=== PATIENT | male | born 1930 | race Caucasian/White ===

== ENCOUNTER 2017-11-30 03:42 | Inpatient (IN) ==
[2017-11-30] MEDS: LACTATED RINGERS 1,000 ML IV SCH ×3 (05:45→17:14)
[2017-11-30 06:10] LABS: Basophils # (Auto) 0 K/mcL (0.0-0.3); Basophils % (Auto) 0.5 % (0.0-2.0); Eosinophils # (Auto) 0.1 K/mcL (0.0-0.7); Granulocytes % (Auto) 81.5 % (38.0-78.0); Lymphocytes % (Auto) 11.5 % (15.5-49.0); Mean Cell Volume 85.3 fL (80.0-100.0); Mean Corpuscular HGB Conc 32.9 g/dL (31.0-36.0); Mean Corpuscular Hemoglobin 28.1 pg (26.0-34.0); Monocytes # (Auto) 0.5 K/mcL (0.1-0.9); Monocytes % (Auto) 5.5 % (1.0-12.0); Platelet Count 217 K/mcL (140-440); RBC 4.13 M/mcL (4.50-5.90); Red Cell Distribution Width 14.3 % (11.5-14.5)
--- NOTE | 2017-11-30 06:44 | Emergency Department Note ---
Fall HPI - General Chief Complaint: Fall Stated Complaint: fall Time Seen by Provider: 11/30/17 04:06 Source: EMS Mode of arrival: EMS - History of Present Illness HPI Narrative: This is an Alzheimer's patient who simply rolled out of bed and has fractured his right hip. Did not hit his head and has no other injuries or complaints. He does live at home and is ambulatory. - Related Data Home Medications Medication Instructions Recorded Confirmed cholecalciferol (vitamin D3) 2,000 1,000 unit PO QDAY tab 09/14/14 11/30/17 unit tablet omeprazole 20 mg tablet,delayed 20 mg PO DAILY tab 09/14/14 11/30/17 release Docusate Sodium [Stool Softener] 300 mg PO BID 04/23/16 11/30/17 Multivit-Min/Folic Acid/Vit K1 1 each PO DAILY 04/23/16 11/30/17 [Multi For Her 50 Plus Softgel] Sennosides [Senna Laxative] 25 mg PO BID 07/16/16 11/30/17 Ocuvite 1 tab PO DAILY 08/18/16 11/30/17 dextran 70-hypromellose 0.1 %-0.3 drp OPHTHALMIC 12/16/17 12/16/17 % eye drops incontinence pad, liner, disposable See Dose Instructions .ROUTE 12/16/17 .MEDSUPPLY #200 each ipratropium bromide 42 mcg (0.06 2 spray INTRANASAL TID 12/16/17 12/16/17 %) nasal spray memantine 10 mg tablet 10 mg PO BID 12/16/17 12/16/17 trazodone 100 mg tablet 100 mg PO QHS tab 12/16/17 12/16/17 Previous Rx's Medication Instructions Recorded pseudoephedrine ER 120 mg 120 mg PO BID #270 tab 02/13/17 tablet,extended release Bisacodyl [Dulcolax] 10 mg [place] Q2-3DAYS PRN supp.rect 12/03/17 Acetaminophen [Tylenol] 650 mg PO Q6HP PRN #60 tab 12/06/17 Aspirin [Lite Coat Aspirin] 325 mg PO BID #50 tab 12/06/17 Allergies Allergy/AdvReac Type Severity Reaction Status Date / Time Oxycodone Allergy Intermediate Hallucinati Verified 12/17/17 09:45 ng Review of Systems All systems ED: reviewed and negative except as stated. Fall PMH - Past Medical History [facility] Narrative: Medical History (Last Reviewed 07/10/17 @ 14:53 by Evelin Portillo RN) Urinary hesitancy (Acute) Acute retention of urine (Acute) UTI (urinary tract infection) (Acute) Urinary incontinence (Acute) Cancer of right lung (Acute) Insomnia (Acute) Hyperlipidemia (Acute) Intraepithelial neoplasm (Acute) Internal hemorrhoids (Acute) Gastrointestinal bleed (Acute) Diverticulosis of colon (Acute) Dementia (Acute) Constipation (Acute 04/20/14) Colon polyps (Acute) Cochran's esophagus (Acute) Back pain with radiation (Acute 04/20/14) Atrial fibrillation (Acute) Allergic rhinitis (Acute) Past Surgical History (Last Reviewed 07/10/17 @ 14:53 by Evelin Portilol RN) S/P TURP (Acute) History of blood transfusion (Acute) Hx of tonsillectomy (Acute) History of prostate biopsy (Acute) Status post lobectomy of lung (Acute) History of lung biopsy (Acute) H/O esophagogastroduodenoscopy (Acute) History of colonoscopy (Acute) History of adenoidectomy (Acute) Family History (Last Reviewed 07/10/17 @ 14:53 by Evelin Portillo RN) Brother Heart problem Malignant neoplasm of prostate Father Pneumonia Medical history: Reports: atrial fibrillation, cancer (Lung cancer), CVA, dementia, GERD, hyperlipidemia - Social History smoking status: Never smoker Physical Exam Limitations: no limitations General appearance: alert Head: atraumatic Eye: Present: normal appearance ENT: normal exam Neck: Present: normal inspection Chest: Present: normal inspection Respiratory: Present: normal lung sounds bilaterally Cardiovascular: Present: regular rate, normal rhythm, normal heart sounds Abdominal: Present: soft. Absent: distention, tenderness Extremities: Present: other (Tenderness to the right hip and pain with motion of the right hip joint) Neurological: Present: alert Psychiatric: Present: normal affect Skin: Present: warm, dry Course Vital Signs Temperature 97.7 F 11/30/17 03:43 Pulse Rate 69 11/30/17 03:43 Respiratory Rate 19 11/30/17 03:43 Blood Pressure 147/102 11/30/17 03:43 Pulse Oximetry (%) 94 11/30/17 03:43 Temperature 98.2 F 12/06/17 11:57 Pulse Rate 75 12/06/17 11:57 Respiratory Rate 20 12/06/17 11:57 Blood Pressure 131/77 12/06/17 11:57 Pulse Oximetry (%) 96 12/06/17 11:57 Fall - MDM Narrative Medical decision making narrative: This patient has a right hip fracture and will be admitted by Dr. Elaine for Dr. Hammond. - Lab Data Lab results reviewed: Yes I reviewed the patient's lab results. Result diagrams: 12/04/17 04:20 12/05/17 04:40 Lab Results 11/30/17 11/30/17 11/30/17 Range/Units 05:35 05:35 06:50 WBC 8.3 (4.5-11.0) K/mcL RBC 4.13 L (4.50-5.90) M/mcL Hgb 11.6 L (13.5-16.5) g/dL Hct 35.3 L (41.0-55.0) % MCV 85.3 (80.0-100.0) fL MCH 28.1 (26.0-34.0) pg MCHC 32.9 (31.0-36.0) g/dL RDW 14.3 (11.5-14.5) % Plt Count 217 (140-440) K/mcL MPV 8.2 (7.4-10.4) fL Gran % 81.5 H (38.0-78.0) % Lymph % (Auto) 11.5 L (15.5-49.0) % [place] % (Auto) 5.5 (1.0-12.0) % Eos % (Auto) 1.0 (0.0-7.0) % Baso % (Auto) 0.5 (0.0-2.0) % Gran # 6.8 (1.8-8.0) K/mcL Lymph # (Auto) 1.0 L (1.5-4.8) K/mcL [place] # (Auto) 0.5 (0.1-0.9) K/mcL Eos # (Auto) 0.1 (0.0-0.7) K/mcL Baso # (Auto) 0 (0.0-0.3) K/mcL Sodium 141 (133-145) mmol/L Potassium 4.0 (3.3-5.1) mmol/L Chloride 105 (96-108) mmol/L Carbon Dioxide 26 (22-30) mmol/L Anion Gap 10.0 (8-16) BUN 26 H (8-23) mg/dl Creatinine 1.0 (0.7-1.2) mg/dl GFR Calculation 67 Glucose 111 H (70-105) mg/dL Calcium 8.8 (8.6-10.4) mg/dl Total Bilirubin < 0.2 (0.0-1.0) mg/dL AST 21 (0-37) U/l ALT 19 (0-40) U/l Alkaline Phosphatase 109 (39-117) U/L Total Protein 6.9 (5.9-8.4) gm/dL Albumin 3.7 (3.2-5.2) gm/dL Globulin 3.2 (2.2-3.7) gm/dL Albumin/Globulin Ratio 1.2 (1.0-2.3) Urine Color Yellow Urine Appearance Clear Urine pH 6.0 (5.0-9.0) Ur Specific [place] 1.018 (1.000-1.035) Urine Protein Neg (NEG) mg/dL Urine Glucose (UA) Negative (NEG) mg/dL Urine Ketones Neg (NEG) mg/dL Urine Occult Blood >=1.0 A (<0.03) mg/dL Urine Nitrate Neg (NEG) Urine Bilirubin Neg (NEG) mg/dL Urine Urobilinogen Neg (NEG) mg/dL Ur Leukocyte Esterase Neg (NEG) /uL Urine RBC > 182 H (0-1) /hpf Urine WBC 4 (0-4) /hpf Ur Squamous Epith Cells < 1 (0-4) /hpf Urine Bacteria 0 (0) /hpf Hyaline Casts 1 (0-2) /lpf Urine Mucus Few (0) /hpf Ur Culture Indicated? No - Radiology Data Radiology results reviewed: Yes I reviewed the patient's radiology results. Disposition Pt seen by DIRECTOR OF CASINO/PA only: No Clinical Impression: Hip fracture, right Disposition: Xfer Inpatient Rehab Fac Condition: Serious
[2017-11-30 06:46] LABS: ALT/SGPT 19 U/l (0-40); Albumin 3.7 gm/dL (3.2-5.2); Albumin/Globulin Ratio 1.2 (1.0-2.3); Alkaline Phosphatase 109 U/L (39-117); Blood Urea Nitrogen 26 mg/dl (8-23)
[2017-11-30 06:49] LABS: Appearance,Urine CLEAR; Bacteria,Urine 0 /hpf (0); Bilirubin,Urine NEG (NEG); Color,Urine YELLOW; Glucose,Urine (UA) NEGATIVE (NEG); Leukocyte Esterase,Urine NEG /uL (NEG); Mucus,Urine FEW /hpf (0); Protein,Urine NEG (NEG); Specific Gravity,Urine 1.018 (1.000-1.035); Urine Blood >=1.0 mg/dL (<0.03); Urine Hyaline Cast 1 /lpf (0-2); Urine RBC > 182 /hpf (0-1); Urine Squamous Epithelial Cell < 1 /hpf (0-4); Urine WBC 4 /hpf (0-4); Urobilinogen,Urine NEG (NEG)
--- NOTE | 2017-11-30 07:15 | Cat Scan Report ---
CLINICAL INFORMATION: Right hip fracture TECHNIQUE: Thin section axial images of the right hip. Sagittally and coronally reformatted images. COMPARISON: Plain film examination dated 11/30/2017 FINDINGS: Right femoral neck fracture are again identified. This is obliquely oriented. This extends from the subcapital femoral neck superiorly to the mid to distal femoral neck colloid. There is impaction and varus angulation deformity. There is displacement. Right hemipelvis is otherwise negative. Pubic symphysis is negative. No intrapelvic hematoma. No free fluid. Examination was initially reviewed by [facility] IMPRESSION: 1. Right femoral neck fracture with impaction and varus angulation. 2. Fracture is subcapital and transcervical with displacement Interpreted and Authenticated by: Darrion Colvin 11/30/17
--- NOTE | 2017-11-30 07:17 | XRay Report ---
INDICATION: Fall. Hip fracture. TECHNIQUE: AP chest x-ray, portable semiupright COMPARISON: 05/29/2017 FINDINGS: Poor quality examination due to difficulty positioning the patient. Inspiration is suboptimal. Findings are suspicious for bilateral infiltrates. There may be right pleural fluid. Upright PA and lateral chest x-ray recommended when clinically appropriate IMPRESSION: 1. Poor quality examination. Bilateral infiltrates are possible. 2. Recommend upright film with better inspiration when clinically appropriate Interpreted and Authenticated by: Darrion Colvin 11/30/17
--- NOTE | 2017-11-30 07:18 | XRay Report ---
CLINICAL INFORMATION: Right hip injury TECHNIQUE: AP pelvis. Lateral right hip COMPARISON: None. FINDINGS: Subcapital or transcervical right hip fracture. There is varus angulation deformity. Pelvis is negative. No fracture. No lytic lesion. Sacrum is suboptimally visualized but no definite abnormality. IMPRESSION: Right hip fracture Interpreted and Authenticated by: Darrion Colvin 11/30/17
--- NOTE | 2017-11-30 08:27 | Internal Med History&Physical ---
Medical - H&P: [facility] Patient information: Note initiated : 11/30/17 at 8:22 am Service Date, if different from initiated Date: [] Patient: Vidal Guajardo a 87 y/o M admitted on for fall. Chief Complaint: fall, right hip pain History of present illness: Mr. Guajardo is a 87 year old M a history of dementia, urinary frequency and retention, Cochran's esophagus, hypercholesterolemia which is not currently treated presents the ED after fall out of bed. History is obtained speaking to the patient's , some history obtained from the patient, as well as reviewing the available medical record. Patient is restless at night, he rolled out of bed this morning early, landed on his right side. His was unable to get him up. EMS was called, and he was transferred to the ED. Imaging reveals a right subcapital hip fracture. Currently the patient's complaining of some right hand pain, no hip pain while he is at rest. He denies any shortness of breath. His provides further review of systems, he normally does not have lower extremity edema, normally does not get dyspneic with exertion. He has no known history of coronary disease. She denies there is a history of atrial fibrillation, she was surprised to hear that that was noted in his chart (he is sinus rhythm currently ). 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 He does have a chronic cough which is nonproductive and has been ongoing for several years, and preceded his lobectomy. He generally ambulates without any symptoms. Patient is being admitted for surgical repair of his right subcapital hip fracture. Patient denies any fever, any headache, vision change, sore throat, shortness of breath, chest pain/tightness/pressure, nausea, vomiting, abdominal pain, limb pain. ROS unobtainable: due to mental status (Other than noted in the history of present illness, further review of systems cannot be reliably contained due to the patient's dementia) Medical - H&P: PMH Medical history: Hyperlipidemia (Acute) Dementia (Acute) Insomnia (Acute) Internal hemorrhoids (Acute) Gastrointestinal bleed (Acute) Diverticulosis of colon (Acute) Constipation (Acute 04/20/14) Colon polyps (Acute) Cochran's esophagus (Acute) Back pain with radiation (Acute 04/20/14) Urinary hesitancy (Acute) Acute retention of urine (Acute) UTI (urinary tract infection) (Acute) Urinary incontinence (Acute) Intraepithelial neoplasm (Acute) Cancer of right lung (Acute), s/p lobectomy Atrial fibrillation (Acute)- is unaware of this diagnosis and NSR 11/30/17 Allergic rhinitis (Acute) Surgical history: Status post lobectomy of lung (Acute)-RML History of lung biopsy (Acute) S/P TURP (Acute) History of prostate biopsy (Acute) History of blood transfusion (Acute) Hx of tonsillectomy (Acute) History of adenoidectomy (Acute) H/O esophagogastroduodenoscopy (Acute) History of colonoscopy (Acute) Pertinent family history: Brother Heart problem Malignant neoplasm of prostate Father Pneumonia Social history: The patient lives with his . He has never smoked. He has not drink alcohol. He had been independent in ADLs until the current hospitalization. Medical - H&P: Meds Home Medications Medication Instructions Recorded Confirmed Type cholecalciferol (vitamin D3) 2,000 1,000 unit PO QDAY tab 09/14/14 11/30/17 History unit tablet omeprazole 20 mg tablet,delayed 20 mg PO DAILY tab 09/14/14 11/30/17 History release Docusate Sodium [Stool Softener] 300 mg PO BID 04/23/16 11/30/17 History Multivit-Min/Folic Acid/Vit K1 1 each PO DAILY 04/23/16 11/30/17 History [Multi For Her 50 Plus Softgel] Sennosides [Senna Laxative] 25 mg PO BID 07/16/16 11/30/17 History Ocuvite 1 tab PO DAILY 08/18/16 11/30/17 History pseudoephedrine ER 120 mg 120 mg PO BID #270 tab 02/13/17 11/30/17 Rx tablet,extended release Allergies Allergy/AdvReac Type Severity Reaction Status Date / Time No Known Drug Allergies Allergy Verified 11/13/17 14:24 Medical - H&P: Exam - Constitutional Vitals: Temp Pulse Resp BP Pulse Ox 97.7 F 70 19 147/76 95 11/30/17 03:43 11/30/17 06:31 11/30/17 03:43 11/30/17 06:31 11/30/17 06:31 Exam: GENERAL: Alert, oriented to self, in no acute distress. Cooperative, appears stated age. HEENT: Atraumatic. PERRL, conjunctiva clear, no scleral icterus. Hearing grossly intact (hearing aids in place). Oropharynx with moist mucous membranes , no lip or gum lesions, no pharyngeal erythema or exudate. Tongue midline, palate rises symmetrically. NECK: Supple without meningismus, no thyromegaly RESPIRATORY: Breath sounds with coarse rales in the bases bilaterally, otherwise clear without wheezes or rhonchi. Respiratory effort is unlabored. CARDIOVASCULAR: Regular rate and rhythm, no murmur gallop or rub appreciated. No peripheral edema. JVP is below the level of the clavicle while at 30. Carotid pulses 2+ without bruit. Dorsalis pedis and posterior tibial pulses 2+. GI: Abdomen soft, nontender, no guarding or rebound. Bowel sounds are present. No hepatosplenomegaly. LYMPHATIC: No cervical or supraclavicular lymphadenopathy MUSCULOSKELETAL: Mild tenderness with palpation over the lateral right hip. Right lower extremity is aligned normally, normal pulses and intact sensation. Right hand is without deformity, erythema or edema. There is no tenderness. Otherwise there is no joint erythema or swelling, normal range of motion in remaining extremities. SKIN: Intact, warm, dry. No lesions. Skin turgor decreased. Multiple superficial varicosities on the lower extremities. NEUROLOGIC: Cranial nerves II through XII grossly intact. Muscle mass normal for age. Strength 5/5 in the upper lower extremities, testing limited by hip fracture in the lower extremities. Sensation intact to light touch bilaterally. PSYCHIATRIC: Alert, oriented to person only decreased insight into his medical condition, poor short and long-term memory. Speech is rambling at times. Medical - H&P: Reslt - Labs CBC & Chem 7: 11/30/17 05:35 11/30/17 05:35 Labs: Short CBC 11/30/17 11/30/17 11/30/17 Range/Units 05:35 05:35 06:50 WBC 8.3 (4.5-11.0) K/mcL RBC 4.13 L (4.50-5.90) M/mcL Hgb 11.6 L (13.5-16.5) g/dL Hct 35.3 L (41.0-55.0) % MCV 85.3 (80.0-100.0) fL MCH 28.1 (26.0-34.0) pg MCHC 32.9 (31.0-36.0) g/dL RDW 14.3 (11.5-14.5) % Plt Count 217 (140-440) K/mcL MPV 8.2 (7.4-10.4) fL Gran % 81.5 H (38.0-78.0) % Lymph % (Auto) 11.5 L (15.5-49.0) % [place] % (Auto) 5.5 (1.0-12.0) % Eos % (Auto) 1.0 (0.0-7.0) % Baso % (Auto) 0.5 (0.0-2.0) % Gran # 6.8 (1.8-8.0) K/mcL Lymph # (Auto) 1.0 L (1.5-4.8) K/mcL [place] # (Auto) 0.5 (0.1-0.9) K/mcL Eos # (Auto) 0.1 (0.0-0.7) K/mcL Baso # (Auto) 0 (0.0-0.3) K/mcL Sodium 141 (133-145) mmol/L Potassium 4.0 (3.3-5.1) mmol/L Chloride 105 (96-108) mmol/L Carbon Dioxide 26 (22-30) mmol/L Anion Gap 10.0 (8-16) BUN 26 H (8-23) mg/dl Creatinine 1.0 (0.7-1.2) mg/dl GFR Calculation 67 Glucose 111 H (70-105) mg/dL Calcium 8.8 (8.6-10.4) mg/dl Total Bilirubin < 0.2 (0.0-1.0) mg/dL AST 21 (0-37) U/l ALT 19 (0-40) U/l Alkaline Phosphatase 109 (39-117) U/L Total Protein 6.9 (5.9-8.4) gm/dL Albumin 3.7 (3.2-5.2) gm/dL Globulin 3.2 (2.2-3.7) gm/dL Albumin/Globulin Ratio 1.2 (1.0-2.3) Urine Color Yellow Urine Appearance Clear Urine pH 6.0 (5.0-9.0) Ur Specific [place] 1.018 (1.000-1.035) Urine Protein Neg (NEG) mg/dL Urine Glucose (UA) Negative (NEG) mg/dL Urine Ketones Neg (NEG) mg/dL Urine Occult Blood >=1.0 A (<0.03) mg/dL Urine Nitrate Neg (NEG) Urine Bilirubin Neg (NEG) mg/dL Urine Urobilinogen Neg (NEG) mg/dL Ur Leukocyte Esterase Neg (NEG) /uL Urine RBC > 182 H (0-1) /hpf Urine WBC 4 (0-4) /hpf Ur Squamous Epith Cells < 1 (0-4) /hpf Urine Bacteria 0 (0) /hpf Hyaline Casts 1 (0-2) /lpf Urine Mucus Few (0) /hpf Ur Culture Indicated? No BMP 11/30/17 05:35 Sodium 141 Potassium 4.0 Chloride 105 Carbon Dioxide 26 BUN 26 H Creatinine 1.0 Glucose 111 H Calcium 8.8 Liver Function 11/30/17 Range/Units 05:35 Total Bilirubin < 0.2 (0.0-1.0) mg/dL AST 21 (0-37) U/l ALT 19 (0-40) U/l Alkaline Phosphatase 109 (39-117) U/L Albumin 3.7 (3.2-5.2) gm/dL Urine 11/30/17 Range/Units 06:50 Urine Color Yellow Urine Appearance Clear Urine pH 6.0 (5.0-9.0) Ur Specific [place] 1.018 (1.000-1.035) Urine Protein Neg (NEG) mg/dL Urine Glucose (UA) Negative (NEG) mg/dL - EKG Data -: EKG Reviewed by Myself (Sinus at 71, no acute ST changes) - Impressions Hip X-ray FINDINGS: Subcapital or transcervical right hip fracture. There is varus angulation deformity. Pelvis is negative. No fracture. No lytic lesion. Sacrum is suboptimally visualized but no definite abnormality. IMPRESSION: Right hip fracture CT of Hip, images reviewed IMPRESSION: 1. Right femoral neck fracture with impaction and varus angulation. 2. Fracture is subcapital and transcervical with displacement - Imaging and Cardiology Chest x-ray Status: image reviewed by me Additional comments: FINDINGS: Poor quality examination due to difficulty positioning the patient. Inspiration is suboptimal. Findings are suspicious for bilateral infiltrates. There may be right pleural fluid. Upright PA and lateral chest x-ray recommended when clinically appropriate IMPRESSION: 1. Poor quality examination. Bilateral infiltrates are possible. 2. Recommend upright film with better inspiration when clinically appropriate Medical - H&P: A/P (1) Closed right hip fracture Current visit: Yes Status: Acute (2) Dementia Current visit: Yes Status: Chronic (3) Normocytic anemia Current visit: Yes Status: Chronic - Narrative A/P Narrative: 87-year-old male with history of fairly significant dementia presents after a fall out of bed with right hip fracture. Right hip fracture. Patient will require operative repair. In regards to operative risk, the patient is no history of coronary disease. He does have a history of right lobectomy and does have some coarse rales at the bases more consistent with perhaps fibrosis. He has no evidence otherwise of decompensated heart failure and no history of CHF. He is oxygenating well on room air. His chest radiograph is of poor quality with poor inspiration, suggesting possible basilar infiltrates, however he has no symptoms to suggest pneumonia, and has a normal white count. He is at risk for delirium postoperatively, that will have to be managed as needed. Discussed with Dr. Hammond. Plan: Inpatient admission Dr. Hammond to take to the OR this morning Nothing by mouth SCDs currently, Lovenox when safe postoperatively Dementia. Advanced. Discussed with his that he may have significant worsening of his cognitive function because of the injury as well as necessity for anesthesia and pain medications. She realizes this is a likely possibility. He is at risk for delirium. He has been tried on Aricept and Namenda in the past without significant improvement. Plan: Supportive care, frequent reorientation, minimizing distractions, etc. Normocytic anemia. Mild. Appears to be long-standing. He does have history of GI bleed listed, but no current evidence of GI blood loss according to his . May be related to chronic disease. Do not see a contraindication for anticoagulation for DVT prophylaxis. We'll need to follow postoperatively for any acute blood loss anemia on top of his current normocytic anemia. Plan: Monitor. CODE STATUS: DO NOT RESUSCITATE DVT prophylaxis: SCDs preoperatively
[2017-11-30] MEDS ORDERED: VIT A,C & E/LUTEIN/MINERALS TABLET PO SCH (09:00)
[2017-11-30] MEDS ORDERED: DOCUSATE SODIUM 100 MG CAPSULE PO SCH (09:00)
[2017-11-30] MEDS ORDERED: ceFAZolin 1 GM VIAL IV SCH (09:30)
[2017-11-30] MEDS ORDERED: ceFAZolin 1 GM VIAL ONE (09:35)
[2017-11-30] MEDS ORDERED: KETAMINE 100 MG/ML ML IV ONE (09:40)
[2017-11-30] MEDS ORDERED: LIDOCAINE HCL/PF 100 MG/5 ML SYRINGE IV ONE (09:40)
[2017-11-30] MEDS ORDERED: HYDROmorphone 2 MG/ML VIAL IV ONE (09:40)
[2017-11-30] MEDS ORDERED: fentaNYL 250 MCG/5 ML VIAL IV ONE (09:40)
[2017-11-30] MEDS ORDERED: DEXAMETHASONE 10 MG/ML VIAL IV ONE (09:40)
[2017-11-30] MEDS ORDERED: ONDANSETRON 4 MG/2 ML VIAL IV ONE (09:40)
[2017-11-30] MEDS ORDERED: PROPOFOL 200 MG/20 ML VIAL IV ONE (09:40)
[2017-11-30] MEDS ORDERED: TRANEXAMIC ACID 1,000 MG/10 ML VIAL IV ONE (09:40)
[2017-11-30] MEDS ORDERED: MIDAZOLAM 2 MG/2 ML VIAL IV ONE (09:40)
[2017-11-30] MEDS ORDERED: FLUMAZENIL 0.1 MG/ML ML IV PRN (10:19)
[2017-11-30] MEDS ORDERED: ACETAMINOPHEN 1,000 MG/100 ML BOTTLE IV ONE (10:19)
[2017-11-30] MEDS ORDERED: LACTATED RINGERS 250 ML IV PRN (10:19)
[2017-11-30] MEDS ORDERED: NALOXONE HCL 0.4 MG/ML VIAL IV PRN (10:19)
[2017-11-30] MEDS ORDERED: BENZOCAINE/MENTHOL 1 LOZENGE PO PRN (10:19)
[2017-11-30] MEDS ORDERED: IPRATROPIUM/ALBUTEROL 3 ML AMPUL.NEB NEB PRN (10:19)
[2017-11-30] MEDS ORDERED: METHOCARBAMOL 1,000 MG/10 ML VIAL IV PRN (10:19)
[2017-11-30] MEDS ORDERED: fentaNYL 100 MCG/2 ML VIAL IV PRN (10:19)
[2017-11-30] MEDS ORDERED: GENTAMICIN SULFATE 800 MG/20 ML VIAL IR ONE (10:24)
[2017-11-30] MEDS ORDERED: LACTATED RINGERS 1,000 ML IV SCH ×2 (10:30→11:04)
[2017-11-30] MEDS ORDERED: ACETAMINOPHEN 325 MG TABLET PO PRN (11:04)
[2017-11-30] MEDS ORDERED: ONDANSETRON 4 MG/2 ML VIAL IV PRN (11:04)
[2017-11-30] MEDS ORDERED: BISACODYL 10 MG SUPP.RECT PR PRN (11:04)
[2017-11-30] MEDS ORDERED: MAGNESIUM HYDROXIDE 30 ML ORAL.SUSP PO PRN (11:04)
--- NOTE | 2017-11-30 11:52 | History and Physical Report ---
DATE OF ADMISSION: 11/30/2017 IDENTIFICATION: This is an 87-year-old male. CHIEF COMPLAINT: Right hip fracture. HISTORY: The patient resides at home with his . He rolled out of bed this morning. He had immediate pain, right hip. This was a non-syncopal fall. He did not strike his head, and he really has no other injuries, but complains of hip pain, presents to the emergency room, and radiographs have demonstrated a right hip fracture. PAST MEDICAL HISTORY: Significant for fairly involved Alzheimer disease. He has had a previous chest surgery for lung cancer, but is really quite healthy otherwise. He does have a history of atrial fibrillation, but is not presently in atrial fibrillation. He has had some urologic issues and is status post a TURP. PAST SURGICAL HISTORY: He has had a previous lobectomy of his lung. He has had a tonsillectomy. He has had a TURP. MEDICATIONS: Include omeprazole, vitamin D, vitamins, Ocuvite. ALLERGIES: None. REVIEW OF SYSTEMS: He has generally been quite healthy and the balance of 10-point review of systems is negative except for some urinary issues. PHYSICAL EXAMINATION: GENERAL: He is awake and alert, but is clearly confused. Vital Signs: Quite normal. HEAD: Normocephalic, atraumatic. EYES: PERRLA. Conjunctivae clear. ENT: Within normal limits. Dentition poor. NECK: Supple without pain on range of motion. HEART: Regular. LUNGS: Clear. ABDOMEN: Benign. LOWER EXTREMITIES: His right lower extremity is shortened with somewhat of a deformity, his left lower extremity is normal and is neurovascularly intact. Right lower extremity appears to be without neurovascular deficit, but again is shortened and any motion whatsoever produces an acute spasm and pain. RADIOGRAPHS: Demonstrate a femoral neck fracture. IMPRESSION: Femoral neck fracture subcapital/transcervical. PLAN: We have reviewed treatment options. We will plan to proceed with a hemiarthroplasty of this right hip. GDD:sobia Job ID: [id number] Doc ID: [id number] Duong Hammond MD
--- NOTE | 2017-11-30 12:12 | XRay Report ---
CLINICAL INFORMATION: Right hip replacement TECHNIQUE: AP and crosstable lateral right hip COMPARISON: Preoperative evaluation dated 11/30/2017 FINDINGS: Status post right hip arthroplasty. There is postoperative soft tissue gas and there are skin ej anteriorly. Anatomic position demonstrated. IMPRESSION: Status post right hip arthroplasty Interpreted and Authenticated by: Darrion Colvin 11/30/17
[2017-11-30] MEDS ORDERED: OLANZapine 10 MG VIAL IM SCH (16:45)
[2017-11-30] MEDS: OLANZapine 10 MG VIAL IM ONE ×2 (16:56→16:57)
[2017-11-30] MEDS: 0.9 % SODIUM CHLORIDE 10 ML SYRINGE IV SCH ×2 (16:58→20:59)
[2017-11-30] MEDS: FAMOTIDINE/PF 20 MG/2 ML VIAL IV SCH ×2 (17:14→20:55)
[2017-11-30] MEDS: ceFAZolin 1 GM VIAL IV SCH (19:26)
[2017-11-30] MEDS ORDERED: OLANZapine 10 MG VIAL IM PRN (19:38)
[2017-11-30] MEDS ORDERED: LORazepam 2 MG/ML VIAL ONE (20:29)
[2017-11-30] MEDS: LORazepam 2 MG/ML VIAL IV PRN (20:30)
[2017-11-30] MEDS: DOCUSATE SODIUM 100 MG CAPSULE PO SCH (20:59)
[2017-11-30] MEDS: ASPIRIN 325 MG ENTERIC COATED TABLET PO SCH (20:59)
[2017-11-30] MEDS: SENNOSIDES 1 TABLET PO SCH (20:59)
[2017-12-01] MEDS: LORazepam 2 MG/ML VIAL IV PRN ×5 (01:32→23:16)
[2017-12-01] MEDS: ceFAZolin 1 GM VIAL IV SCH (04:12)
[2017-12-01] MEDS: 0.9 % SODIUM CHLORIDE 10 ML SYRINGE IV SCH ×3 (06:28→20:30)
[2017-12-01] MEDS: LACTATED RINGERS 1,000 ML IV SCH ×3 (06:28→22:46)
[2017-12-01 07:50] LABS: Basophils # (Auto) 0 K/mcL (0.0-0.3); Basophils % (Auto) 0.1 % (0.0-2.0); Eosinophils # (Auto) 0 K/mcL (0.0-0.7); Eosinophils % (Auto) 0.4 % (0.0-7.0); Granulocytes % (Auto) 86.4 % (38.0-78.0); Lymphocytes # (Auto) 0.9 K/mcL (1.5-4.8); Lymphocytes % (Auto) 6.6 % (15.5-49.0); Mean Cell Volume 85.7 fL (80.0-100.0); Mean Corpuscular HGB Conc 32.5 g/dL (31.0-36.0); Mean Corpuscular Hemoglobin 27.8 pg (26.0-34.0); Monocytes # (Auto) 0.9 K/mcL (0.1-0.9); Monocytes % (Auto) 6.5 % (1.0-12.0); Platelet Count 178 K/mcL (140-440); RBC 4.04 M/mcL (4.50-5.90); Red Cell Distribution Width 14.4 % (11.5-14.5)
[2017-12-01 08:07] LABS: Blood Urea Nitrogen 19 mg/dl (8-23)
--- NOTE | 2017-12-01 08:07 | Orthopedic Progress Note ---
Subjective Patient information: Note initiated : 12/01/17 at 8:05 am Service Date, if different from initiated Date: [] Patient: Vidal Guajardo 87 y/o M admitted on 11/30/17 for Fall/Right Hip Fracture. Chief Complaint: [S/P right hip hemiarthroplasty] HPI is limited due to sedation. No particular complaints. Objective Vital signs: Vital Signs Temp Pulse Pulse Pulse Resp BP BP 12/01/17 03:30 98.0 F 89 20 118/67 12/01/17 01:30 11/30/17 23:45 97.8 F 78 20 115/69 11/30/17 21:45 11/30/17 21:32 11/30/17 20:45 11/30/17 20:40 11/30/17 19:35 99.7 F H 88 16 103/61 11/30/17 17:09 127/72 11/30/17 16:00 98.1 F 18 110/60 11/30/17 15:10 98.2 F 16 117/66 11/30/17 14:20 103/71 11/30/17 13:50 92/60 11/30/17 13:45 11/30/17 13:20 125/72 11/30/17 12:50 120/75 11/30/17 12:35 11/30/17 12:20 112/67 11/30/17 12:02 97.4 F 86 14 120/64 11/30/17 11:48 97.8 F 90 13 126/66 11/30/17 11:33 97.8 F 87 12 124/68 11/30/17 11:28 97.8 F 88 13 117/60 11/30/17 11:23 97.8 F 89 14 115/65 11/30/17 11:18 97.8 F 88 14 116/63 11/30/17 11:13 97.8 F 89 12 119/60 11/30/17 11:08 97.7 F 89 14 113/65 11/30/17 11:03 97.7 F 86 13 112/60 11/30/17 09:07 97.7 F 70 19 147/76 Pulse Ox 12/01/17 03:30 94 12/01/17 01:30 93 11/30/17 23:45 95 11/30/17 21:45 94 11/30/17 21:32 95 11/30/17 20:45 94 11/30/17 20:40 84 L 11/30/17 19:35 93 11/30/17 17:09 11/30/17 16:00 99 11/30/17 15:10 98 11/30/17 14:20 11/30/17 13:50 11/30/17 13:45 97 11/30/17 13:20 11/30/17 12:50 96 11/30/17 12:35 96 11/30/17 12:20 98 11/30/17 12:02 98 11/30/17 11:48 98 11/30/17 11:33 99 11/30/17 11:28 100 11/30/17 11:23 100 11/30/17 11:18 100 11/30/17 11:13 100 11/30/17 11:08 99 11/30/17 11:03 100 11/30/17 09:07 95 Intake and Output 11/30/17 12/01/17 12/01/17 21:59 05:59 13:59 Intake Total 0 / 0 1000 / 1000 Output Total 725 / 725 Balance 0 / 0 275 / 275 Intake: IV 1000 / 1000 Lactated Ringers 1,000 ml @ 100 1000 / 1000 mls/hr IV .Q10H [facility] Rx#: [id number] Oral 0 / 0 0 / 0 Output: Urine Catheter Amount 725 / 725 Other: Urine Appearance Clear Clear Straight Clear Urine Color Light Gris Straw Straight Light Gris Urine Odor Normal Weight 164 lb Intake & Output: Intake & Output 11/30/17 12/01/17 12/01/17 21:59 05:59 13:59 Intake Total 0 / 0 1000 / 1000 Output Total 725 / 725 Balance 0 / 0 275 / 275 Weight 164 lb Intake: IV 1000 / 1000 Lactated Ringers 1,000 ml @ 100 1000 / 1000 mls/hr IV .Q10H [facility] Rx#: [id number] Oral 0 / 0 0 / 0 Output: Urine Catheter Amount 725 / 725 Other: Urine Appearance Clear Clear Straight Clear Urine Color Light Gris Straw Straight Light Gris Urine Odor Normal Incision: Yes healing, Yes clean and dry Incision clean and dry: Yes Dressing: Yes clean, Yes dry, Yes intact Weight bearing status: full Neurological exam IM: Yes alert, Yes oriented X3, Yes motor sensory intact, Yes neurovascular intact Extremities exam IM: Yes calf tenderness (negative), Yes Denny's sign (negative) , Yes Foot pink and warm, Yes neurovascular intact - Labs CBC & BMP: 12/01/17 06:15 11/30/17 05:35 Labs: 12/01/17 11/30/17 06:15 05:35 Hgb 11.2 L 11.6 L Hct 34.6 L 35.3 L Assessment and Plan (1) Hip fracture, right Ambulate with PT today. Likely discharge to SNF in 2 days. Consult with social sciences department chair regarding discharge placement.. Status: Acute
[2017-12-01] MEDS: FAMOTIDINE/PF 20 MG/2 ML VIAL IV SCH ×2 (08:33→20:29)
--- NOTE | 2017-12-01 09:42 | Internal Med Progress Note ---
Medical - PN: Subj Patient information: Note initiated : 12/01/17 at 9:40 am Service Date, if different from initiated Date: [] Patient: Vidal Guajardo a 87 y/o M admitted on 11/30/17 for Fall/Right Hip Fracture. Chief Complaint: f/u hip fracture Interval history: 11/30 Mr. Guajardo is a 87 year old M a history of dementia, urinary frequency and retention, Cochran's esophagus, hypercholesterolemia which is not currently treated presents the ED after fall out of bed. History is obtained speaking to the patient's , some history obtained from the patient, as well as reviewing the available medical record. Patient is restless at night, he rolled out of bed this morning early, landed on his right side. His was unable to get him up. EMS was called, and he was transferred to the ED. Imaging reveals a right subcapital hip fracture. Currently the patient's complaining of some right hand pain, no hip pain while he is at rest. He denies any shortness of breath. His provides further review of systems, he normally does not have lower extremity edema, normally does not get dyspneic with exertion. He has no known history of coronary disease. She denies there is a history of atrial fibrillation, she was surprised to hear that that was noted in his chart (he is sinus rhythm currently ). 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 He does have a chronic cough which is nonproductive and has been ongoing for several years, and preceded his lobectomy. He generally ambulates without any symptoms. Patient is being admitted for surgical repair of his right subcapital hip fracture. 12/01 Had successful right hemiarthroplasty yesterday Became quite restless and agitated towards the evening, consistent with ing. Zyprexa 10 mg IM given, subsequently required lorazepam. Was more agitated this morning, required further lorazepam, now sleeping. 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 Developing hypoxia. Intermittently requiring oxy mask. - Constitutional Vitals: Vital Signs Temp Pulse Resp BP Pulse Ox 98.5 F 84 24 H 134/79 98 12/01/17 08:38 12/01/17 08:38 12/01/17 08:38 12/01/17 08:38 12/01/17 08:38 Period Temp Pulse Resp BP Sys/Canchola Pulse Ox Last 24 Hr 97.4 F-99.7 F 78-90 12-24 92-134/60-79 84-100 Intake and Output 11/30/17 12/01/17 12/01/17 21:59 05:59 13:59 Intake Total 0 / 0 1000 / 1000 Output Total 725 / 725 Balance 0 / 0 275 / 275 Weight 164 lb Intake & Output: Intake & Output 11/30/17 12/01/17 12/01/17 21:59 05:59 13:59 Intake Total 0 / 0 1000 / 1000 Output Total 725 / 725 Balance 0 / 0 275 / 275 Weight 164 lb Intake: IV 1000 / 1000 Lactated Ringers 1,000 ml @ 100 1000 / 1000 mls/hr IV .Q10H [facility] Rx#: [id number] Oral 0 / 0 0 / 0 Output: Urine Catheter Amount 725 / 725 Other: Urine Appearance Clear Clear Straight Clear Urine Color Light Gris Straw Straight Light Gris Urine Odor Normal Exam: General: Sleeping, does not arouse much Chest: Right rales at the bases, no rales left base. Respirations are unlabored , respiratory rate is normal Cardiovascular: Regular, no edema Musculoskeletal: Right hip dressings are clean and intact, good capillary refill Neuro: Sleeping, does not arouse much, is confused when awake. Medical - PN: Obj Da - Labs CBC & Chem 7: 12/01/17 06:15 12/01/17 06:50 Labs: Abnormal Lab Results 12/01/17 12/01/17 11/30/17 06:50 06:15 06:50 WBC 13.6 H RBC 4.04 L Hgb 11.2 L Hct 34.6 L Gran % 86.4 H Lymph % (Auto) 6.6 L Gran # 11.7 H Lymph # (Auto) 0.9 L BUN Glucose 113 H Calcium 8.1 L Urine Occult Blood >=1.0 A Urine RBC > 182 H 11/30/17 11/30/17 05:35 05:35 WBC RBC 4.13 L Hgb 11.6 L Hct 35.3 L Gran % 81.5 H Lymph % (Auto) 11.5 L Gran # Lymph # (Auto) 1.0 L BUN 26 H Glucose 111 H Calcium Urine Occult Blood Urine RBC Meds: Medications Acetaminophen (Tylenol) 650 mg PO Q6HP PRN PRN Reason: PAIN/FEVER > 101 Aspirin (Ecotrin) 325 mg PO BID [facility] Last Admin: 11/30/17 20:59 Dose: Not Given Bisacodyl (Dulcolax) 10 mg [place] Q2-3DAYS PRN PRN Reason: Constipation Docusate Sodium (Colace) 300 mg PO BID [facility] Last Admin: 11/30/17 20:59 Dose: Not Given Enoxaparin Sodium (Lovenox) 40 mg SQ DAILY [facility] Famotidine (Pepcid) 20 mg IV Q12 [facility] Last Admin: 12/01/17 08:33 Dose: 20 mg Lactated Ringer's (Lactated Ringers) 1,000 mls @ 100 mls/hr IV .Q10H [facility] Last Admin: 12/01/17 06:28 Dose: 100 mls/hr Lorazepam (Ativan) 1 mg IV Q4HP PRN PRN Reason: ANXIETY/SEDATION Last Admin: 12/01/17 06:26 Dose: 1 mg Magnesium Hydroxide (Milk Of Magnesia) 30 ml PO DAILYP PRN PRN Reason: Constipation Morphine Sulfate (Morphine) 2 mg IV Q1HP PRN PRN Reason: Pain Last Admin: 12/01/17 05:27 Dose: 2 mg Multivitamins/Minerals (Ocuvite) 1 tab PO DAILY [facility] Ondansetron HCl (Zofran) 4 mg IV Q6HP PRN PRN Reason: Nausea And Vomiting Senna (Senokot) 2 tab PO HS [facility] Last Admin: 11/30/17 20:59 Dose: Not Given Sodium Chloride (Saline Flush) 10 ml IV Q8 [facility] Last Admin: 12/01/17 06:28 Dose: Not Given - Imaging and cardiology Chest x-ray Status: image reviewed by me Additional comments: FINDINGS: Examination continues to be consistent with interstitial edema but radiograph is improved since 11/30/2017. No new abnormality. No parenchymal consolidation. IMPRESSION: 1. Improved chest x-ray 11/30/2017 2. Findings remain consistent with mild interstitial pulmonary edema. Continued follow-up recommended Medical - PN: A/P - Time Spent With Patient Total time spent is greater than 50% in coordination of care (as documented) at patient's floor/unit and/or counseling patient: Greater than 35 minutes (1) Closed right hip fracture Status: Acute Current Visit: Yes (2) Dementia Status: Chronic Current Visit: Yes (3) Normocytic anemia Status: Chronic Current Visit: Yes - Narrative A/P Narrative: 87-year-old male with history of significant dementia presents after a fall out of bed with right hip fracture. Right hip fracture. Now postop day #1 status post right hemiarthroplasty. Agitated with delirium postoperatively, though has a history of significant sundowning behaviors at home in his own environment. Plan: Physical therapy as possible. We'll change to Lovenox for DVT prophylaxis from twice a day aspirin as we cannot reliably get him to take oral meds. Leukocytosis. Developing hypoxia in spite of good respiratory effort, has rales at the right base. Concerning for possible pneumonia, possible aspiration , though CXR most consistent with edema. Urine in [place] clear, surgical wound does not look infected. Received perioperative cefazolin. Plan: Will diurese, given CXR findings; recheck urinalysis, follow. Dementia. Advanced. Significant sundowning and agitation last evening and in the pet sitting. Requiring benzodiazepines to calm. Has failed trials of Aricept and Namenda in the past. Plan: Supportive care, frequent reorientation, judicious use of sedatives as a last resort. Normocytic anemia. Mild. Appears to be long-standing. Stable. Plan: Monitor. Patient high risk for further decompensation given his advanced dementia on top of hip fracture. We'll continue to follow expectantly. CODE STATUS: DO NOT RESUSCITATE DVT prophylaxis: Lovenox Medical - PN: Qual - VTE Deep Vein Thrombosis/Pulmonary Embolism Present on Admission: No
[2017-12-01] MEDS: ASPIRIN 325 MG ENTERIC COATED TABLET PO SCH ×2 (09:51→20:30)
[2017-12-01] MEDS: DOCUSATE SODIUM 100 MG CAPSULE PO SCH ×2 (09:51→20:30)
[2017-12-01] MEDS: VIT A,C & E/LUTEIN/MINERALS TABLET PO SCH (09:51)
--- NOTE | 2017-12-01 10:01 | XRay Report ---
INDICATION: Follow-up pulmonary edema TECHNIQUE: AP chest x-ray, semiupright COMPARISON: Previous examination dated 11/30/2017. Prior chest x-rays dated 05/29/2017, 02/20/2017 and 06/21/2015 FINDINGS: Examination continues to be consistent with interstitial edema but radiograph is improved since 11/30/2017. No new abnormality. No parenchymal consolidation. IMPRESSION: 1. Improved chest x-ray 11/30/2017 2. Findings remain consistent with mild interstitial pulmonary edema. Continued follow-up recommended Interpreted and Authenticated by: Darrion Colvin 12/01/17
[2017-12-01] MEDS: ENOXAPARIN 40 MG/0.4 ML SYRINGE SQ SCH (10:18)
[2017-12-01 10:53] LABS: Appearance,Urine CLEAR; Bacteria,Urine FEW /hpf (0); Bilirubin,Urine NEG (NEG); Color,Urine YELLOW; Glucose,Urine (UA) NEGATIVE (NEG); Leukocyte Esterase,Urine 25 /uL (NEG); Mucus,Urine FEW /hpf (0); Protein,Urine 30 mg/dL (NEG); Specific Gravity,Urine 1.018 (1.000-1.035); Urine Blood 0.2 mg/dL (<0.03); Urine Hyaline Cast 3 /lpf (0-2); Urine RBC 41 /hpf (0-1); Urine Squamous Epithelial Cell 0 /hpf (0-4); Urine WBC 20 /hpf (0-4); Urobilinogen,Urine NEG (NEG)
[2017-12-01] MEDS ORDERED: FUROSEMIDE 40 MG/4 ML VIAL IV ONE (11:01)
[2017-12-01] MEDS: PIPERACILLIN SODIUM/TAZOBACTAM 3.375 GM in DEXTROSE 5% IN WATER 50 ML IV SCH ×3 (12:28→23:15)
[2017-12-01] MEDS: ACETAMINOPHEN 1,000 MG/100 ML BOTTLE IV PRN (13:28)
[2017-12-01] MEDS: SENNOSIDES 1 TABLET PO SCH (20:30)
[2017-12-01] MEDS ORDERED: LORazepam 2 MG/ML VIAL ONE (23:18)
[2017-12-02] MEDS ORDERED: FUROSEMIDE 40 MG/4 ML VIAL IV ONE ×2 (00:03→00:18)
[2017-12-02] MEDS: IPRATROPIUM/ALBUTEROL 3 ML AMPUL.NEB NEB PRN ×3 (01:40→15:39)
[2017-12-02] MEDS ORDERED: IPRATROPIUM/ALBUTEROL 3 ML AMPUL.NEB NEB ONE (01:42)
[2017-12-02 04:57] LABS: Basophils # (Auto) 0 K/mcL (0.0-0.3); Basophils % (Auto) 0.4 % (0.0-2.0); Eosinophils # (Auto) 0.1 K/mcL (0.0-0.7); Eosinophils % (Auto) 0.8 % (0.0-7.0); Lymphocytes # (Auto) 0.7 K/mcL (1.5-4.8); Lymphocytes % (Auto) 5.4 % (15.5-49.0); Mean Cell Volume 85.4 fL (80.0-100.0); Mean Corpuscular HGB Conc 32.3 g/dL (31.0-36.0); Mean Corpuscular Hemoglobin 27.6 pg (26.0-34.0); Monocytes # (Auto) 0.8 K/mcL (0.1-0.9); Monocytes % (Auto) 6.4 % (1.0-12.0); Platelet Count 180 K/mcL (140-440); RBC 3.96 M/mcL (4.50-5.90); Red Cell Distribution Width 14.5 % (11.5-14.5)
[2017-12-02] MEDS: LORazepam 2 MG/ML VIAL IV PRN (05:26)
[2017-12-02] MEDS ORDERED: LORazepam 2 MG/ML VIAL ONE (05:30)
[2017-12-02 05:33] LABS: Blood Urea Nitrogen 17 mg/dl (8-23)
[2017-12-02] MEDS: PIPERACILLIN SODIUM/TAZOBACTAM 3.375 GM in DEXTROSE 5% IN WATER 50 ML IV SCH ×3 (05:53→17:28)
[2017-12-02] MEDS: 0.9 % SODIUM CHLORIDE 10 ML SYRINGE IV SCH ×2 (05:53→14:17)
[2017-12-02] MEDS: ACETAMINOPHEN 1,000 MG/100 ML BOTTLE IV PRN ×3 (07:21→14:57)
[2017-12-02] MEDS: ASPIRIN 325 MG ENTERIC COATED TABLET PO SCH ×2 (08:29→21:56)
[2017-12-02] MEDS: DOCUSATE SODIUM 100 MG CAPSULE PO SCH ×2 (08:29→21:56)
[2017-12-02] MEDS: VIT A,C & E/LUTEIN/MINERALS TABLET PO SCH (08:30)
[2017-12-02] MEDS: FAMOTIDINE/PF 20 MG/2 ML VIAL IV SCH ×2 (08:46→21:56)
[2017-12-02] MEDS: ENOXAPARIN 40 MG/0.4 ML SYRINGE SQ SCH (08:47)
[2017-12-02] MEDS ORDERED: ENOXAPARIN 40 MG/0.4 ML SYRINGE SQ SCH (09:00)
--- NOTE | 2017-12-02 09:15 | Operative Note ---
DATE OF OPERATION: 11/30/2017 PREOPERATIVE DIAGNOSES: Right transcervical femoral neck fracture/subcapital. POSTOPERATIVE DIAGNOSIS: Right transcervical femoral neck fracture/subcapital. OPERATION PROPOSED: Right hip hemiarthroplasty for fracture. OPERATION PERFORMED: Right hip hemiarthroplasty for fracture. OPERATING SURGEON: Jm Hammond MD REGULATORY COMPLIANCE DIRECTOR: Alycia Blue PA-C INDICATIONS: This is a gentleman who has had a displaced femoral neck fracture. We have reviewed surgical options and have elected to proceed with a right hip hemiarthroplasty. OPERATION IN DETAIL: Informed consent was obtained. He was taken to the operative room and provided appropriate anesthetic and prophylactic antibiotics. He was carefully positioned. His hip was prepped sterilely. A standard posterior approach to the hip performed. I dissected through the iliotibial band. I cut and released short external rotators. The hip capsule was cut and released. I then refined the femoral neck cut. I removed the head ball. I then sequentially reamed and broached. I impacted a size 6 [place] press-fit stem that was quite stable. I sized and reduced in place a size 53 head ball. The wounds were irrigated thoroughly. I closed the hip capsule. The IT band was closed. I closed the skin with 2-0 inverted deep dermal, and ej. The procedure was tolerated well. No complications. Estimated blood loss is 50 mL. GDD:issac Job ID: [id number] Doc ID: [id number] Duong Hammond MD
--- NOTE | 2017-12-02 10:38 | Internal Med Progress Note ---
Medical - PN: Subj Patient information: Note initiated : 12/02/17 at 10:36 am Service Date, if different from initiated Date: [] Patient: Vidal Guajardo a 87 y/o M admitted on 11/30/17 for Fall/Right Hip Fracture. Chief Complaint: Follow-up hip fracture, dementia with delirium Interval history: 11/30 Mr. Guajardo is a 87 year old M a history of dementia, urinary frequency and retention, Cochran's esophagus, hypercholesterolemia which is not currently treated presents the ED after fall out of bed. History is obtained speaking to the patient's , some history obtained from the patient, as well as reviewing the available medical record. Patient is restless at night, he rolled out of bed this morning early, landed on his right side. His was unable to get him up. EMS was called, and he was transferred to the ED. Imaging reveals a right subcapital hip fracture. Currently the patient's complaining of some right hand pain, no hip pain while he is at rest. He denies any shortness of breath. His provides further review of systems, he normally does not have lower extremity edema, normally does not get dyspneic with exertion. He has no known history of coronary disease. She denies there is a history of atrial fibrillation, she was surprised to hear that that was noted in his chart (he is sinus rhythm currently ). 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 He does have a chronic cough which is nonproductive and has been ongoing for several years, and preceded his lobectomy. He generally ambulates without any symptoms. Patient is being admitted for surgical repair of his right subcapital hip fracture. 12/01 Had successful right hemiarthroplasty yesterday Became quite restless and agitated towards the evening, consistent with . Zyprexa 10 mg IM given, subsequently required lorazepam. Was more agitated this morning, required further lorazepam, now sleeping. 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 Developing hypoxia. Intermittently requiring oxy mask. 12/02 Continues to have intermittent agitation, trying to get out of bed. Has required lorazepam. Diuresis last evening secondary to falling oxygen saturations, worsening breath sounds, improved Urine analysis yesterday notable for urinary tract infection in the setting of urinary catheter, Zosyn started White count mildly improved today Cultures without growth so far - Constitutional Vitals: Vital Signs Temp Pulse Resp BP Pulse Ox 96.8 F L 81 28 H 137/84 96 12/02/17 07:25 12/02/17 04:00 12/02/17 07:25 12/02/17 07:25 12/02/17 07:25 Period Temp Pulse Resp BP Sys/Canchola Pulse Ox Last 24 Hr 96.8 F-101.2 F 75-103 16-28 110-171/73-89 92-99 Intake and Output 12/01/17 12/02/17 12/02/17 21:59 05:59 13:59 Intake Total 1150 / 1150 150 / 150 150 / 150 Output Total 555 / 555 4 / 4 2 / 2 Balance 595 / 595 146 / 146 148 / 148 Weight 162 lb Intake & Output: Intake & Output 12/01/17 12/02/17 12/02/17 21:59 05:59 13:59 Intake Total 1150 / 1150 150 / 150 150 / 150 Output Total 555 / 555 4 / 4 2 / 2 Balance 595 / 595 146 / 146 148 / 148 Weight 162 lb Intake: IV 1150 / 1150 150 / 150 150 / 150 Lactated Ringers 1,000 ml @ 100 1000 / 1000 mls/hr IV .Q10H [facility] Rx#: [id number] Zosyn 3.375 gm In Dextrose 5% 50 / 50 50 / 50 50 / 50 in Water 50 ml @ 100 mls/hr IV Q6H [facility] Rx#:[id number] Oral 0 / 0 0 / 0 Output: Urine Catheter Amount 550 / 550 Straight 550 / 550 # of times incontinent of urine 5 / 5 4 / 4 2 / 2 Other: Urine Appearance Straight Clear Urine Color Straight Straw Exam: General: Somnolent/sedated Chest: Scattered upper airway noise, no rales noted throughout bit difficult to auscultate, respirations appear unlabored Cardiovascular regular Abdomen: Soft, no apparent tenderness with palpation Musculoskeletal: Right lower extremity intact, 2+ Tercel's pedis, surgical dressing intact Neuro: Sedated Medical - PN: Obj Da - Labs CBC & Chem 7: 12/02/17 03:35 12/02/17 03:35 Labs: Abnormal Lab Results 12/02/17 12/02/17 12/01/17 03:35 03:35 10:23 WBC 12.5 H RBC 3.96 L Hgb 10.9 L Hct 33.8 L Gran % 87.0 H Lymph % (Auto) 5.4 L Gran # 10.9 H Lymph # (Auto) 0.7 L Chloride 92 L BUN Glucose 132 H Calcium 8.2 L Urine Protein 30 A Urine Occult Blood 0.2 A Ur Leukocyte Esterase 25 A Urine RBC 41 H Urine WBC 20 H Urine Bacteria Few A Hyaline Casts 3 H 12/01/17 12/01/17 11/30/17 06:50 06:15 06:50 WBC 13.6 H RBC 4.04 L Hgb 11.2 L Hct 34.6 L Gran % 86.4 H Lymph % (Auto) 6.6 L Gran # 11.7 H Lymph # (Auto) 0.9 L Chloride BUN Glucose 113 H Calcium 8.1 L Urine Protein Urine Occult Blood >=1.0 A Ur Leukocyte Esterase Urine RBC > 182 H Urine WBC Urine Bacteria Hyaline Casts 11/30/17 11/30/17 05:35 05:35 WBC RBC 4.13 L Hgb 11.6 L Hct 35.3 L Gran % 81.5 H Lymph % (Auto) 11.5 L Gran # Lymph # (Auto) 1.0 L Chloride BUN 26 H Glucose 111 H Calcium Urine Protein Urine Occult Blood Ur Leukocyte Esterase Urine RBC Urine WBC Urine Bacteria Hyaline Casts Meds: Medications Acetaminophen (Tylenol) 650 mg PO Q6HP PRN PRN Reason: PAIN/FEVER > 101 Albuterol/Ipratropium (Duoneb) 3 ml NEB Q4HP PRN PRN Reason: Dyspnea Last Admin: 12/02/17 07:18 Dose: 3 ml Aspirin (Ecotrin) 325 mg PO BID [facility] Last Admin: 12/02/17 08:29 Dose: Not Given Bisacodyl (Dulcolax) 10 mg [place] Q2-3DAYS PRN PRN Reason: Constipation Docusate Sodium (Colace) 300 mg PO BID [facility] Last Admin: 12/02/17 08:29 Dose: Not Given Enoxaparin Sodium (Lovenox) 40 mg SQ DAILY [facility] Last Admin: 12/02/17 08:47 Dose: 40 mg Famotidine (Pepcid) 20 mg IV Q12 [facility] Last Admin: 12/02/17 08:46 Dose: 20 mg Acetaminophen (Ofirmev) 1,000 mg in 100 mls @ 200 mls/hr IV Q6HP PRN PRN Reason: PAIN/FEVER > 101 Last Infusion: 12/02/17 07:51 Dose: Infused Piperacillin Sod/Tazobactam (Sod 3.375 gm/ Dextrose) 50 mls @ 100 mls/hr IV Q6H [facility] Last Infusion: 12/02/17 06:30 Dose: Infused Lorazepam (Ativan) 0.5 mg IV Q4HP PRN PRN Reason: ANXIETY/SEDATION Last Admin: 12/02/17 05:26 Dose: 0.5 mg Magnesium Hydroxide (Milk Of Magnesia) 30 ml PO DAILYP PRN PRN Reason: Constipation Morphine Sulfate (Morphine) 2 mg IV Q1HP PRN PRN Reason: Pain Last Admin: 12/02/17 04:51 Dose: 2 mg Multivitamins/Minerals (Ocuvite) 1 tab PO DAILY [facility] Last Admin: 12/02/17 08:30 Dose: Not Given Ondansetron HCl (Zofran) 4 mg IV Q6HP PRN PRN Reason: Nausea And Vomiting Senna (Senokot) 2 tab PO HS [facility] Last Admin: 12/01/17 20:30 Dose: Not Given Sodium Chloride (Saline Flush) 10 ml IV Q8 [facility] Last Admin: 12/02/17 05:53 Dose: 10 ml - Imaging and cardiology Chest x-ray Status: image reviewed by me Additional comments: IMPRESSION: 1. Improved chest x-ray 11/30/2017 2. Findings remain consistent with mild interstitial pulmonary edema. Continued follow-up recommended Medical - PN: A/P (1) Closed right hip fracture Status: Acute Current Visit: Yes (2) Dementia Status: Chronic Current Visit: Yes (3) Normocytic anemia Status: Chronic Current Visit: Yes - Narrative A/P Narrative: 87-year-old male with history of significant dementia presents after a fall out of bed with right hip fracture. Right hip fracture. Now postop day #2 status post right hemiarthroplasty. Continues with delirium, in the setting of dementia with sundowning at home at baseline. Plan: Physical therapy as possible. Continue Lovenox for DVT prophylaxis ( changed from twice a day aspirin as we cannot reliably get him to take oral meds ). Dementia with delirium. Continues with significant agitation, requiring lorazepam. That dose has been reduced to try to minimize exposure to benzodiazepines. Has failed Aricept and Namenda in the past. Plan: Trial of Depakote sprinkles, continue as needed lorazepam, we'll try to reorient, use nonpharmacologic treatments for delirium. Leukocytosis/urinary tract infection associated with urinary catheter. No evidence of pneumonia, but did have volume overload on chest x-ray Plan: Continue Zosyn, follow up blood and urine cultures. Volume overload. Patient was some desaturation yesterday. Received furosemide 2 with improvement. Plan: Follow, now saline locked. Normocytic anemia. Mild. Appears to be long-standing. Stable. Plan: Monitor. Patient high risk for further decompensation given his advanced dementia on top of hip fracture. We'll continue to follow expectantly. CODE STATUS: DO NOT RESUSCITATE DVT prophylaxis: Lovenox Medical - PN: Qual - VTE Deep Vein Thrombosis/Pulmonary Embolism Present on Admission: No
[2017-12-02] MEDS: DEXTROSE 5%-1/2NS 1,000 ML IV SCH (11:53)
[2017-12-02] MEDS: DIVALPROEX 125 MG CAP.SPRINK PO SCH ×2 (14:17→21:56)
[2017-12-02] MEDS: SENNOSIDES 1 TABLET PO SCH (22:02)
[2017-12-03] MEDS: 0.9 % SODIUM CHLORIDE 10 ML SYRINGE IV SCH ×4 (00:48→23:19)
[2017-12-03] MEDS: PIPERACILLIN SODIUM/TAZOBACTAM 3.375 GM in DEXTROSE 5% IN WATER 50 ML IV SCH ×5 (01:16→23:20)
[2017-12-03] MEDS: ACETAMINOPHEN 1,000 MG/100 ML BOTTLE IV PRN (02:28)
[2017-12-03] MEDS ORDERED: OLANZapine 10 MG VIAL IM SCH (03:30)
[2017-12-03] MEDS: DEXTROSE 5%-1/2NS 1,000 ML IV SCH (03:43)
[2017-12-03] MEDS ORDERED: OLANZapine 10 MG VIAL IM ONE (03:49)
[2017-12-03] MEDS ORDERED: FUROSEMIDE 40 MG/4 ML VIAL IV ONE (03:49)
[2017-12-03] MEDS: FUROSEMIDE 40 MG/4 ML VIAL IV ONE ×2 (04:17→07:06)
[2017-12-03 06:09] LABS: Basophils # (Auto) 0 K/mcL (0.0-0.3); Basophils % (Auto) 0.3 % (0.0-2.0); Eosinophils # (Auto) 0.4 K/mcL (0.0-0.7); Eosinophils % (Auto) 3.3 % (0.0-7.0); Granulocytes % (Auto) 81.5 % (38.0-78.0); Lymphocytes # (Auto) 0.9 K/mcL (1.5-4.8); Lymphocytes % (Auto) 7.2 % (15.5-49.0); Mean Cell Volume 85.3 fL (80.0-100.0); Mean Corpuscular HGB Conc 32.6 g/dL (31.0-36.0); Mean Corpuscular Hemoglobin 27.8 pg (26.0-34.0); Monocytes # (Auto) 0.9 K/mcL (0.1-0.9); Monocytes % (Auto) 7.7 % (1.0-12.0); Platelet Count 208 K/mcL (140-440); RBC 4.02 M/mcL (4.50-5.90); Red Cell Distribution Width 14.2 % (11.5-14.5)
[2017-12-03 06:26] LABS: ALT/SGPT 14 U/l (0-40); Albumin 3.2 gm/dL (3.2-5.2); Albumin/Globulin Ratio 0.8 (1.0-2.3); Alkaline Phosphatase 116 U/L (39-117); Bilirubin,Direct < 0.2 mg/dL (0.0-0.3); Blood Urea Nitrogen 19 mg/dl (8-23); Gamma Glutamyl Transpeptidase 22 U/L (8-61); proBNP 786.9 pg/ml (0-450)
[2017-12-03] MEDS ORDERED: POTASSIUM CHLORIDE 20 MEQ PACKET PO ONE (07:08)
--- NOTE | 2017-12-03 07:12 | Internal Med Progress Note ---
Medical - PN: Subj Patient information: Note initiated : 12/03/17 at 6:57 am Service Date, if different from initiated Date: [] Patient: Vidal Guajardo a 87 y/o M admitted on 11/30/17 for Fall/Right Hip Fracture. Chief Complaint: [] Interval history: Mr. Guajardo is a 87 year old M a history of dementia, urinary frequency and retention, Cochran's esophagus, hypercholesterolemia which is not currently treated presents the ED after fall out of bed. History is obtained speaking to the patient's , some history obtained from the patient, as well as reviewing the available medical record. Patient is restless at night, he rolled out of bed this morning early, landed on his right side. His was unable to get him up. EMS was called, and he was transferred to the ED. Imaging reveals a right subcapital hip fracture. Currently the patient's complaining of some right hand pain, no hip pain while he is at rest. He denies any shortness of breath. His provides further review of systems, he normally does not have lower extremity edema, normally does not get dyspneic with exertion. He has no known history of coronary disease. She denies there is a history of atrial fibrillation, she was surprised to hear that that was noted in his chart (he is sinus rhythm currently ). 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 He does have a chronic cough which is nonproductive and has been ongoing for several years, and preceded his lobectomy. He generally ambulates without any symptoms. Patient is being admitted for surgical repair of his right subcapital hip fracture. 12/01 Had successful right hemiarthroplasty yesterday Became quite restless and agitated towards the evening, consistent with . Zyprexa 10 mg IM given, subsequently required lorazepam. Was more agitated this morning, required further lorazepam, now sleeping. 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 Developing hypoxia. Intermittently requiring oxy mask. 12/02 Continues to have intermittent agitation, trying to get out of bed. Has required lorazepam. Diuresis last evening secondary to falling oxygen saturations, worsening breath sounds, improved Urine analysis yesterday notable for urinary tract infection in the setting of urinary catheter, Zosyn started White count mildly improved today Cultures without growth so far 12/03 family at bedside, patient more awake and family able to understand some words. he seems to answer some of my questions, denies pain/headache/fever/chills/ nausea. - Constitutional Vitals: Vital Signs Temp Pulse Resp BP Pulse Ox 98.5 F 94 H 20 153/80 96 12/03/17 04:00 12/03/17 04:00 12/03/17 04:00 12/03/17 04:00 12/03/17 04:00 Period Temp Pulse Resp BP Sys/Canchola Pulse Ox Last 24 Hr 96.8 F-98.5 F 88-100 20-28 96-163/60-84 93-99 Intake and Output 12/02/17 12/03/17 12/03/17 21:59 05:59 13:59 Intake Total 150 / 150 150 / 150 50 / 50 Output Total 2 Balance 148 / 148 149 / 149 50 / 50 Weight 72.121 kg Intake & Output: Intake & Output 12/02/17 12/03/17 12/03/17 21:59 05:59 13:59 Intake Total 150 / 150 150 / 150 50 / 50 Output Total Balance 148 / 148 149 / 149 50 / 50 Weight 72.121 kg Intake: IV 150 / 150 150 / 150 50 / 50 Zosyn 3.375 gm In Dextrose 5% 50 / 50 50 / 50 50 / 50 in Water 50 ml @ 100 mls/hr IV Q6H [facility] Rx#:[id number] Oral 0 / 0 Output: # of times incontinent of urine Exam: General: Awake, No acute Distress HEENT: EOMI, CV: RRR, No murmurs, Pulm: Clear b/l, no wheezing/rhonchi Abd: soft, nontender, +BS x4 Ext: no clubbing/cyanosis/edema Neuro: awake, moves all extremities, able understand some words clearly said no to some ROS questions. Skin: warm/dry Medical - PN: Obj Da - Labs CBC & Chem 7: 12/03/17 04:39 12/03/17 04:39 Labs: Abnormal Lab Results 12/03/17 12/03/17 12/02/17 04:39 04:39 03:35 WBC 12.1 H RBC 4.02 L Hgb 11.2 L Hct 34.3 L Gran % 81.5 H Lymph % (Auto) 7.2 L Gran # 9.9 H Lymph # (Auto) 0.9 L Potassium 3.2 L Chloride 92 L Glucose 107 H 132 H Calcium 8.2 L Phosphorus 2.4 L AST 44 H Lactate Dehydrogenase 290 H NT-Pro-B Natriuret Pep 786.9 H Globulin 3.9 H Albumin/Globulin Ratio 0.8 L Triglycerides 177 H Urine Protein Urine Occult Blood Ur Leukocyte Esterase Urine RBC Urine WBC Urine Bacteria Hyaline Casts 12/02/17 12/01/17 12/01/17 03:35 10:23 06:50 WBC 12.5 H RBC 3.96 L Hgb 10.9 L Hct 33.8 L Gran % 87.0 H Lymph % (Auto) 5.4 L Gran # 10.9 H Lymph # (Auto) 0.7 L Potassium Chloride Glucose 113 H Calcium 8.1 L Phosphorus AST Lactate Dehydrogenase NT-Pro-B Natriuret Pep Globulin Albumin/Globulin Ratio Triglycerides Urine Protein 30 A Urine Occult Blood 0.2 A Ur Leukocyte Esterase 25 A Urine RBC 41 H Urine WBC 20 H Urine Bacteria Few A Hyaline Casts 3 H 12/01/17 06:15 WBC 13.6 H RBC 4.04 L Hgb 11.2 L Hct 34.6 L Gran % 86.4 H Lymph % (Auto) 6.6 L Gran # 11.7 H Lymph # (Auto) 0.9 L Potassium Chloride Glucose Calcium Phosphorus AST Lactate Dehydrogenase NT-Pro-B Natriuret Pep Globulin Albumin/Globulin Ratio Triglycerides Urine Protein Urine Occult Blood Ur Leukocyte Esterase Urine RBC Urine WBC Urine Bacteria Hyaline Casts Meds: Medications Acetaminophen (Tylenol) 650 mg PO Q6HP PRN PRN Reason: PAIN/FEVER > 101 Albuterol/Ipratropium (Duoneb) 3 ml NEB Q4HP PRN PRN Reason: Dyspnea Last Admin: 12/02/17 15:39 Dose: 3 ml Aspirin (Ecotrin) 325 mg PO BID [facility] Last Admin: 12/02/17 21:56 Dose: Not Given Bisacodyl (Dulcolax) 10 mg MA Q2-3DAYS PRN PRN Reason: Constipation Divalproex Sodium (Depakote Sprinkles) 125 mg PO BID [facility] Last Admin: 12/02/17 21:56 Dose: Not Given Docusate Sodium (Colace) 300 mg PO BID [facility] Last Admin: 12/02/17 21:56 Dose: Not Given Enoxaparin Sodium (Lovenox) 40 mg SQ DAILY [facility] Last Admin: 12/02/17 08:47 Dose: 40 mg Famotidine (Pepcid) 20 mg IV Q12 [facility] Last Admin: 12/02/17 21:56 Dose: Not Given Acetaminophen (Ofirmev) 1,000 mg in 100 mls @ 200 mls/hr IV Q6HP PRN PRN Reason: PAIN/FEVER > 101 Last Infusion: 12/03/17 04:30 Dose: Infused Piperacillin Sod/Tazobactam (Sod 3.375 gm/ Dextrose) 50 mls @ 100 mls/hr IV Q6H [facility] Last Infusion: 12/03/17 06:07 Dose: Infused Magnesium Hydroxide (Milk Of Magnesia) 30 ml PO DAILYP PRN PRN Reason: Constipation Morphine Sulfate (Morphine) 2 mg IV Q1HP PRN PRN Reason: Pain Last Admin: 12/03/17 02:28 Dose: 2 mg Multivitamins/Minerals (Ocuvite) 1 tab PO DAILY [facility] Last Admin: 12/02/17 08:30 Dose: Not Given Olanzapine (Zyprexa) 5 mg IM ONCE [facility] Last Admin: 12/03/17 04:15 Dose: 5 mg Ondansetron HCl (Zofran) 4 mg IV Q6HP PRN PRN Reason: Nausea And Vomiting Senna (Senokot) 2 tab PO HS [facility] Last Admin: 12/02/17 22:02 Dose: Not Given Sodium Chloride (Saline Flush) 10 ml IV Q8 [facility] Last Admin: 12/03/17 06:42 Dose: 10 ml Medical - PN: A/P - Time Spent With Patient Total time spent is greater than 50% in coordination of care (as documented) at patient's floor/unit and/or counseling patient: - Narrative A/P Narrative: Right hip fracture: s/p status post right hemiarthroplasty (11/30) Plan: Per ortho. Physical therapy as possible. Continue Lovenox for DVT prophylaxis (changed from twice a day aspirin as we cannot reliably get him to take oral meds). Dementia with post-op delerium. in the setting of dementia with sundowning at home at baseline. Has failed Aricept and Namenda in the past. -more awake today and family able to understand some words. Plan: Trial of Depakote sprinkles, switch lorazepam to as needed Zyprexa, we'll try to reorient, use nonpharmacologic treatments for delirium. Urinary tract infection associated with urinary catheter. No evidence of pneumonia, but did have volume overload on chest x-ray Plan: Continue Zosyn, follow up blood and urine cultures. Volume overload with pulmonary edema: bnp 787 -2L NC, positive fluid balance Plan: fluids stopped previous night but restarted during the day. Stopped again last night with Lasix. check echo, lasix, i/o's Normocytic anemia. Mild. Appears to be long-standing. Stable. Plan: Monitor. Hypokalemia: replace Dysphagia: ST eval, dysphagia diet Patient high risk for further decompensation given his advanced dementia on top of hip fracture. We'll continue to follow expectantly. CODE STATUS: DO NOT RESUSCITATE DVT prophylaxis: Lovenox Medical - PN: Qual - VTE Deep Vein Thrombosis/Pulmonary Embolism Present on Admission: No
--- NOTE | 2017-12-03 07:21 | Orthopedic Progress Note ---
Subjective Patient information: Note initiated : 12/03/17 at 7:19 am Service Date, if different from initiated Date: [] Patient: Vidal Guajardo 87 y/o M admitted on 11/30/17 for Fall/Right Hip Fracture. Chief Complaint: [S/P right hip hemiarthroplasty] HPI is limited due to delirium. He appears to be resting comfortably in bed. No obvious calf tenderness, increased SOA, or chest pain. Objective Vital signs: Vital Signs Temp Pulse Resp BP BP Pulse Ox 12/03/17 06:56 98.1 F 21 117/73 99 12/03/17 04:00 98.5 F 94 H 20 153/80 96 12/03/17 00:00 97.6 F 100 H 22 163/81 99 12/02/17 20:00 97.4 F 88 20 103/68 96 12/02/17 16:00 97.6 F 24 H 109/61 93 12/02/17 12:27 97.8 F 28 H 96/60 95 12/02/17 07:25 96.8 F L 28 H 137/84 96 Intake and Output 12/02/17 12/03/17 12/03/17 21:59 05:59 13:59 Intake Total 150 / 150 150 / 150 50 / 50 Output Total 2 / 2 Balance 148 / 148 149 / 149 50 / 50 Intake: IV 150 / 150 150 / 150 50 / 50 Zosyn 3.375 gm In Dextrose 5% 50 / 50 50 / 50 50 / 50 in Water 50 ml @ 100 mls/hr IV Q6H [facility] Rx#:[id number] Oral 0 / 0 Output: # of times incontinent of urine 2 / 2 Other: Weight 159 lb Intake & Output: Intake & Output 12/02/17 12/03/17 12/03/17 21:59 05:59 13:59 Intake Total 150 / 150 150 / 150 50 / 50 Output Total 2 / 2 Balance 148 / 148 149 / 149 50 / 50 Weight 159 lb Intake: IV 150 / 150 150 / 150 50 / 50 Zosyn 3.375 gm In Dextrose 5% 50 / 50 50 / 50 50 / 50 in Water 50 ml @ 100 mls/hr IV Q6H [facility] Rx#:[id number] Oral 0 / 0 Output: # of times incontinent of urine 2 / 2 Incision: Yes healing, Yes clean and dry Incision clean and dry: Yes Dressing: Yes clean, Yes dry, Yes intact Weight bearing status: full Neurological exam IM: Yes altered (Patient is not alert or oriented to time, person, or place.), Yes motor sensory intact, Yes neurovascular intact Extremities exam IM: Yes calf tenderness (negative), Yes Denny's sign (negative) , Yes Foot pink and warm, Yes neurovascular intact - Labs CBC & BMP: 12/03/17 04:39 12/03/17 04:39 Labs: 12/03/17 12/02/17 12/01/17 04:39 03:35 06:15 Hgb 11.2 L 10.9 L 11.2 L Hct 34.3 L 33.8 L 34.6 L 11/30/17 05:35 Hgb 11.6 L Hct 35.3 L Assessment and Plan (1) Hip fracture, right Ambulate with PT if possible. Continue Lovenox for DVT prophylaxis since patient is unable to tolerate oral medications. Likely discharge to SNF/rehab in 1-3 days per hospitalist. Continue hospitalist recommendations for delirium and UTI. Status: Acute
--- NOTE | 2017-12-03 08:07 | XRay Report ---
INDICATION: History of hip fracture. Hypoxia. TECHNIQUE: AP chest x-ray, portable upright COMPARISON: Previous examinations dated 12/01/2017, 11/30/2017, 05/29/2017 FINDINGS: Appearance remains consistent with interstitial pulmonary edema and radiographic appearance is unchanged since 12/01/2017. No new parenchymal consolidation. IMPRESSION: No significant interval change since 12/01/2017 Interpreted and Authenticated by: Darrion Colvin 12/03/17
[2017-12-03] MEDS: FAMOTIDINE/PF 20 MG/2 ML VIAL IV SCH ×2 (08:14→21:15)
[2017-12-03] MEDS: ENOXAPARIN 40 MG/0.4 ML SYRINGE SQ SCH (08:14)
[2017-12-03] MEDS: DOCUSATE SODIUM 100 MG CAPSULE PO SCH ×2 (08:43→21:14)
[2017-12-03] MEDS: VIT A,C & E/LUTEIN/MINERALS TABLET PO SCH (08:48)
[2017-12-03] MEDS: ASPIRIN 325 MG ENTERIC COATED TABLET PO SCH ×2 (08:48→21:15)
[2017-12-03] MEDS ORDERED: POTASSIUM PHOSPHATE 40 MEQ in DEXTROSE 5% IN WATER 500 ML IV ONE (09:09)
[2017-12-03] MEDS: ACETAMINOPHEN 650 MG/65 ML BOTTLE IV SCH ×4 (09:21→21:14)
[2017-12-03] MEDS: LIDOCAINE PATCH TOPICAL SCH ×3 (10:34→22:00)
[2017-12-03] MEDS: DIVALPROEX 125 MG CAP.SPRINK PO SCH ×2 (11:32→21:15)
--- NOTE | 2017-12-03 12:31 | Discharge Summary ---
Medical - DS: Prov Patient information: Note initiated : 12/03/17 at 12:26 pm Service Date, if different from initiated Date: [] Patient: Vidal Guajardo 87 y/o M admitted on 11/30/17 for Fall/Right Hip Fracture. Chief Complaint: [] Date of admission: 11/30/17 12:08 Discharge date: 12/06/17 Primary care physician: Smitha Yadav Consults: 11/30/17 Consult to Physician [CONS] Stat Comment: Consulting Provider: Duong Hammond Reason For Exam: Physician to Consult Consult to Physician [CONS] Stat Comment: Consulting Provider: Alley Lanier Reason For Exam: Physician to Consult Medical - DS: Meds - Discharge Medications Prescriptions: Acetaminophen [Tylenol] 650 mg PO Q6HP PRN #60 tab PRN Reason: Pain/Fever > 101 Aspirin [Lite Coat Aspirin] 325 mg PO BID #50 tab Active and Home Medications: Home Medications cholecalciferol (vitamin D3) 2,000 unit tablet 1,000 unit PO QDAY tab 09/14/14 [History Confirmed 11/30/17 Last Taken 07/18/16] omeprazole 20 mg tablet,delayed release 20 mg PO DAILY tab 09/14/14 [History Confirmed 11/30/17 Last Taken 06/19/17] Docusate Sodium [Stool Softener] 300 mg PO BID 04/23/16 [History Confirmed 11/30 Last Taken 06/19/17] Multivit-Min/Folic Acid/Vit K1 [Multi For Her 50 Plus Softgel] 1 each PO DAILY 04/23/16 [History Confirmed 11/30/17 Last Taken 06/19/17] Sennosides [Senna Laxative] 25 mg PO BID 07/16/16 [History Confirmed 11/30/17 Last Taken 06/19/17] Ocuvite 1 tab PO DAILY 08/18/16 [History Confirmed 11/30/17 Last Taken 06/19/17] pseudoephedrine ER 120 mg tablet,extended release 120 mg PO BID #270 tab [Rx Confirmed 11/30/17 Last Taken 06/19/17] Medical - DS: Hosp Hospital course: Mr. Guajardo is a 87 year old M withhistory of dementia, urinary frequency and retention, Cochran's esophagus, hypercholesterolemia which is not currently treated presents the ED after fall out of bed. History is obtained speaking to the patient's , some history obtained from the patient, as well as reviewing the available medical record. Patient is restless at night, he rolled out of bed this morning early, landed on his right side. His was unable to get him up. EMS was called, and he was transferred to the ED. Imaging reveals a right subcapital hip fracture. Currently the patient's complaining of some right hand pain, no hip pain while he is at rest. He denies any shortness of breath. His provides further review of systems, he normally does not have lower extremity edema, normally does not get dyspneic with exertion. He has no known history of coronary disease. She denies there is a history of atrial fibrillation, she was surprised to hear that that was noted in his chart (he is sinus rhythm currently ). 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 He does have a chronic cough which is nonproductive and has been ongoing for several years, and preceded his lobectomy. He generally ambulates without any symptoms. Patient is being admitted for surgical repair of his right subcapital hip fracture. 12/01 Had successful right hemiarthroplasty yesterday Became quite restless and agitated towards the evening, consistent with ing. Zyprexa 10 mg IM given, subsequently required lorazepam. Was more agitated this morning, required further lorazepam, now sleeping. 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 Developing hypoxia. Intermittently requiring oxy mask. 12/02 Continues to have intermittent agitation, trying to get out of bed. Has required lorazepam. Diuresis last evening secondary to falling oxygen saturations, worsening breath sounds, improved Urine analysis yesterday notable for urinary tract infection in the setting of urinary catheter, Zosyn started White count mildly improved today Cultures without growth so far 12/03 family at bedside, patient more awake and family able to understand some words. answering to some questions. 12/04 - at Bedside. He slept well last night. No overnight event. Has moments of clarity answers some questions it appears but otherwise difficult to obtain review of systems. Continues to be more awake than previous 12/05 Sleep last night pulled [place], Replaced. at bedside patient appears sleepy. Unable to gather review of systems. Failed multiple swallow evaluations , GI consulted for PEG after discussion with family at bedside. 12/06 PEG placed yesterday. at bedside. patient awake. Stable for discharge overall guarded prognosis. Discharge diagnosis: Right hip fracture dementia with postop delirium urinary tract infection Secondary discharge diagnosis: Volume overload anemia dysphasia - Time Spent with Patient Total time spent providing and/or coordinating discharge services: Greater than 30 minutes Medical - DS: Exam - Constitutional Vitals: Vital Signs Temp Pulse Resp BP BP BP Pulse Ox 12/03/17 12:00 95 F L 86 12 98/64 95 12/03/17 06:56 98.1 F 21 117/73 99 12/03/17 04:00 98.5 F 94 H 20 153/80 96 12/03/17 00:00 97.6 F 100 H 22 163/81 99 12/02/17 20:00 97.4 F 88 20 103/68 96 12/02/17 16:00 97.6 F 24 H 109/61 93 12/02/17 12:27 97.8 F 28 H 96/60 95 Intake and Output 12/02/17 12/03/17 12/03/17 21:59 05:59 13:59 Intake Total 150 / 150 150 / 150 115 / 115 Output Total 2 / 2 1 / 1 2 / 2 Balance 148 / 148 149 / 149 113 / 113 Intake: IV 150 / 150 150 / 150 115 / 115 Zosyn 3.375 gm In Dextrose 5% 50 / 50 50 / 50 50 / 50 in Water 50 ml @ 100 mls/hr IV Q6H [facility] Rx#:[id number] Oral 0 / 0 Output: # of times incontinent of urine 2 / 2 1 / 1 2 / 2 Other: Weight 72.121 kg Medical - DS: Data Labs on day of discharge: Labs from last 24 hours 12/03/17 12/03/17 04:39 04:39 WBC 12.1 H RBC 4.02 L Hgb 11.2 L Hct 34.3 L MCV 85.3 MCH 27.8 MCHC 32.6 RDW 14.2 Plt Count 208 MPV 9.0 Gran % 81.5 H Lymph % (Auto) 7.2 L [place] % (Auto) 7.7 Eos % (Auto) 3.3 Baso % (Auto) 0.3 Gran # 9.9 H Lymph # (Auto) 0.9 L [place] # (Auto) 0.9 Eos # (Auto) 0.4 Baso # (Auto) 0 Sodium 138 Potassium 3.2 L Chloride 96 Carbon Dioxide 30 Anion Gap 12.0 BUN 19 Creatinine 1.2 GFR Calculation 54 Glucose 107 H Uric Acid 4.0 Calcium 8.6 Phosphorus 2.4 L Magnesium 1.9 Total Bilirubin 0.6 Direct Bilirubin < 0.2 GGT 22 AST 44 H ALT 14 Alkaline Phosphatase 116 Lactate Dehydrogenase 290 H NT-Pro-B Natriuret Pep 786.9 H Total Protein 7.1 Albumin 3.2 Globulin 3.9 H Albumin/Globulin Ratio 0.8 L Triglycerides 177 H Preliminary micro results at discharge 12/01/17 13:24 Blood Culture - Preliminary Blood 12/01/17 13:28 Blood Culture - Preliminary Blood 12/01/17 11:51 Urine Culture - Preliminary Urine - Catheterized Medical - DS: A/P - Patient/Caregiver Discharge Instructions Activity: as per physical therapy Diet: NPO Additional Instructions: DIET: tube feedings per dietary PT/OT eval and treat ST eval and treat - Follow up Plan Follow up with: Smitha Yadav ARNP [Primary Care Provider] - Duong Hammond MD [Physician] - Disposition: Xfer SNF Prognosis: Serious Rehab Potential: Fair I certify that the patient requires SNF services: Yes Medical - DS: Qual - VTE Deep Vein Thrombosis/Pulmonary Embolism Present on Admission: No
[2017-12-03] MEDS: SENNOSIDES 1 TABLET PO SCH (21:14)
[2017-12-03] MEDS: OLANZapine 5 MG TABLET PO SCH (21:15)
[2017-12-04] MEDS: ACETAMINOPHEN 650 MG/65 ML BOTTLE IV SCH ×3 (01:15→07:39)
[2017-12-04 05:35] LABS: Basophils # (Auto) 0 K/mcL (0.0-0.3); Basophils % (Auto) 0.3 % (0.0-2.0); Eosinophils # (Auto) 0.5 K/mcL (0.0-0.7); Eosinophils % (Auto) 6.4 % (0.0-7.0); Granulocytes % (Auto) 68.5 % (38.0-78.0); Lymphocytes # (Auto) 1.2 K/mcL (1.5-4.8); Lymphocytes % (Auto) 13.9 % (15.5-49.0); Mean Cell Volume 86.6 fL (80.0-100.0); Mean Corpuscular HGB Conc 31.8 g/dL (31.0-36.0); Mean Corpuscular Hemoglobin 27.5 pg (26.0-34.0); Monocytes # (Auto) 0.9 K/mcL (0.1-0.9); Monocytes % (Auto) 10.9 % (1.0-12.0); Platelet Count 215 K/mcL (140-440); RBC 3.94 M/mcL (4.50-5.90); Red Cell Distribution Width 14.6 % (11.5-14.5)
[2017-12-04] MEDS: PIPERACILLIN SODIUM/TAZOBACTAM 3.375 GM in DEXTROSE 5% IN WATER 50 ML IV SCH ×4 (05:55→23:26)
[2017-12-04] MEDS: 0.9 % SODIUM CHLORIDE 10 ML SYRINGE IV SCH ×3 (05:58→21:40)
[2017-12-04 06:00] LABS: Blood Urea Nitrogen 29 mg/dl (8-23)
--- NOTE | 2017-12-04 07:12 | Internal Med Progress Note ---
Medical - PN: Subj Patient information: Note initiated : 12/04/17 at 7:03 am Service Date, if different from initiated Date: [] Patient: Vidal Guajardo a 87 y/o M admitted on 11/30/17 for Fall/Right Hip Fracture. Chief Complaint: [] Interval history: Mr. Guajardo is a 87 year old M a history of dementia, urinary frequency and retention, Cochran's esophagus, hypercholesterolemia which is not currently treated presents the ED after fall out of bed. History is obtained speaking to the patient's , some history obtained from the patient, as well as reviewing the available medical record. Patient is restless at night, he rolled out of bed this morning early, landed on his right side. His was unable to get him up. EMS was called, and he was transferred to the ED. Imaging reveals a right subcapital hip fracture. Currently the patient's complaining of some right hand pain, no hip pain while he is at rest. He denies any shortness of breath. His provides further review of systems, he normally does not have lower extremity edema, normally does not get dyspneic with exertion. He has no known history of coronary disease. She denies there is a history of atrial fibrillation, she was surprised to hear that that was noted in his chart (he is sinus rhythm currently ). 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 He does have a chronic cough which is nonproductive and has been ongoing for several years, and preceded his lobectomy. He generally ambulates without any symptoms. Patient is being admitted for surgical repair of his right subcapital hip fracture. 12/01 Had successful right hemiarthroplasty yesterday Became quite restless and agitated towards the evening, consistent with . Zyprexa 10 mg IM given, subsequently required lorazepam. Was more agitated this morning, required further lorazepam, now sleeping. 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 Developing hypoxia. Intermittently requiring oxy mask. 12/02 Continues to have intermittent agitation, trying to get out of bed. Has required lorazepam. Diuresis last evening secondary to falling oxygen saturations, worsening breath sounds, improved Urine analysis yesterday notable for urinary tract infection in the setting of urinary catheter, Zosyn started White count mildly improved today Cultures without growth so far 12/03 family at bedside, patient more awake and family able to understand some words. he seems to answer some of my questions, denies pain/headache/fever/chills/ nausea. 12/04 - at Bedside. He slept well last night. No overnight event. Has moments of clarity answers some questions it appears but otherwise difficult to obtain review of systems. Continues to be more awake than previous - Constitutional Vitals: Vital Signs Temp Pulse Resp BP Pulse Ox 96.4 F L 80 16 138/87 99 12/04/17 03:29 12/04/17 03:29 12/04/17 03:29 12/04/17 03:29 12/04/17 03:29 Period Temp Pulse Resp BP Sys/Canchola Pulse Ox Last 24 Hr 95 F-97.6 F 75-90 12-24 98-138/64-87 95-99 Intake and Output 12/03/17 12/04/17 12/04/17 21:59 05:59 13:59 Intake Total 689.0909 / 689.0909 180 / 180 50 / 50 Output Total Balance 686.0909 / 686.0909 179 / 179 50 / 50 Weight 72.575 kg Intake & Output: Intake & Output 12/03/17 12/04/17 12/04/17 21:59 05:59 13:59 Intake Total 689.0909 / 689.0909 180 / 180 50 / 50 Output Total Balance 686.0909 / 686.0909 179 / 179 50 / 50 Weight 72.575 kg Intake: IV 689.0909 / 689.0909 180 / 180 50 / 50 Zosyn 3.375 gm In Dextrose 5% 50 / 50 50 / 50 50 / 50 in Water 50 ml @ 100 mls/hr IV Q6H [facility] Rx#:[id number] Oral 0 / 0 Output: # of times incontinent of urine Other: Urine Color Bright Yellow Exam: General: Awake, No acute Distress HEENT: EOMI, CV: RRR, No murmurs, Pulm: mild bibase rales, no wheezing Abd: soft, nontender, +BS x4 Ext: no clubbing/cyanosis/edema Neuro: awake, moves all extremities, i am able to understand some of his verbalizations, others are incomprehensible Skin: warm/dry Medical - PN: Obj Da - Labs CBC & Chem 7: 12/04/17 04:20 12/04/17 04:20 Labs: Abnormal Lab Results 12/04/17 12/04/17 12/03/17 04:20 04:20 04:39 WBC RBC 3.94 L Hgb 10.9 L Hct 34.1 L RDW 14.6 H Gran % Lymph % (Auto) 13.9 L Gran # Lymph # (Auto) 1.2 L Potassium 3.2 L Chloride BUN 29 H Creatinine 1.4 H Glucose 107 H Calcium Phosphorus 2.4 L AST 44 H Lactate Dehydrogenase 290 H NT-Pro-B Natriuret Pep 786.9 H Globulin 3.9 H Albumin/Globulin Ratio 0.8 L Triglycerides 177 H Urine Protein Urine Occult Blood Ur Leukocyte Esterase Urine RBC Urine WBC Urine Bacteria Hyaline Casts 12/03/17 12/02/17 12/02/17 04:39 03:35 03:35 WBC 12.1 H 12.5 H RBC 4.02 L 3.96 L Hgb 11.2 L 10.9 L Hct 34.3 L 33.8 L RDW Gran % 81.5 H 87.0 H Lymph % (Auto) 7.2 L 5.4 L Gran # 9.9 H 10.9 H Lymph # (Auto) 0.9 L 0.7 L Potassium Chloride 92 L BUN Creatinine Glucose 132 H Calcium 8.2 L Phosphorus AST Lactate Dehydrogenase NT-Pro-B Natriuret Pep Globulin Albumin/Globulin Ratio Triglycerides Urine Protein Urine Occult Blood Ur Leukocyte Esterase Urine RBC Urine WBC Urine Bacteria Hyaline Casts 12/01/17 12/01/17 12/01/17 10:23 06:50 06:15 WBC 13.6 H RBC 4.04 L Hgb 11.2 L Hct 34.6 L RDW Gran % 86.4 H Lymph % (Auto) 6.6 L Gran # 11.7 H Lymph # (Auto) 0.9 L Potassium Chloride BUN Creatinine Glucose 113 H Calcium 8.1 L Phosphorus AST Lactate Dehydrogenase NT-Pro-B Natriuret Pep Globulin Albumin/Globulin Ratio Triglycerides Urine Protein 30 A Urine Occult Blood 0.2 A Ur Leukocyte Esterase 25 A Urine RBC 41 H Urine WBC 20 H Urine Bacteria Few A Hyaline Casts 3 H Meds: Medications Acetaminophen (Tylenol) 650 mg PO Q6HP PRN PRN Reason: PAIN/FEVER > 101 Albuterol/Ipratropium (Duoneb) 3 ml NEB Q4HP PRN PRN Reason: Dyspnea Last Admin: 12/02/17 15:39 Dose: 3 ml Aspirin (Ecotrin) 325 mg PO BID [facility] Last Admin: 12/03/17 21:15 Dose: 325 mg Bisacodyl (Dulcolax) 10 mg MD Q2-3DAYS PRN PRN Reason: Constipation Divalproex Sodium (Depakote Sprinkles) 125 mg PO BID [facility] Last Admin: 12/03/17 21:15 Dose: 125 mg Docusate Sodium (Colace) 300 mg PO BID [facility] Last Admin: 12/03/17 21:14 Dose: 300 mg Enoxaparin Sodium (Lovenox) 40 mg SQ DAILY [facility] Last Admin: 12/03/17 08:14 Dose: 40 mg Famotidine (Pepcid) 20 mg IV Q12 [facility] Last Admin: 12/03/17 21:15 Dose: 20 mg Piperacillin Sod/Tazobactam (Sod 3.375 gm/ Dextrose) 50 mls @ 100 mls/hr IV Q6H [facility] Last Infusion: 12/04/17 06:30 Dose: Infused Acetaminophen (Ofirmev) 650 mg in 65 mls @ 130 mls/hr IV Q4 [facility] Stop: 12/04/17 09:00 Last Infusion: 12/04/17 05:54 Dose: Infused Lidocaine (Lidoderm) 1 patch TOPICAL DAILY@1000 [facility] Last Admin: 12/03/17 10:34 Dose: 1 patch Lidocaine (Lidoderm) 0 patch TOPICAL DAILY@2200 [facility] Last Admin: 12/03/17 22:00 Dose: Not Given Magnesium Hydroxide (Milk Of Magnesia) 30 ml PO DAILYP PRN PRN Reason: Constipation Morphine Sulfate (Morphine) 2 mg IV Q1HP PRN PRN Reason: Pain Last Admin: 12/03/17 06:59 Dose: 2 mg Multivitamins/Minerals (Ocuvite) 1 tab PO DAILY [facility] Last Admin: 12/03/17 08:48 Dose: Not Given Olanzapine (Zyprexa) 5 mg PO HS [facility] Last Admin: 12/03/17 21:15 Dose: 5 mg Ondansetron HCl (Zofran) 4 mg IV Q6HP PRN PRN Reason: Nausea And Vomiting Senna (Senokot) 2 tab PO HS [facility] Last Admin: 12/03/17 21:14 Dose: 2 tab Sodium Chloride (Saline Flush) 10 ml IV Q8 [facility] Last Admin: 12/04/17 05:58 Dose: 10 ml Medical - PN: A/P - Time Spent With Patient Total time spent is greater than 50% in coordination of care (as documented) at patient's floor/unit and/or counseling patient: - Narrative A/P Narrative: Right hip fracture: s/p status post right hemiarthroplasty (11/30) Plan: Per ortho. Physical therapy as possible. Continue Lovenox for DVT prophylaxis (changed from twice a day aspirin as we cannot reliably get him to take oral meds). Dementia with post-op delerium. in the setting of dementia with sundowning at home at baseline. Has failed Aricept and Namenda in the past. -Improving now, slowly Plan: Depakote sprinkles, qhs Zyprexa, we'll try to reorient, use nonpharmacologic treatments for delirium. Urinary tract infection associated with urinary catheter. leukocytosis resolved. No evidence of pneumonia, but did have volume overload on chest x-ray Plan: continue abx Volume overload with pulmonary edema: bnp 787, improved -2L NC/oxymask, unable to keep accurate i/o's w/pt incontinence & concern w/ Parker being placed with patient grabbing at lines Plan: fluids stopped, echo pending, s/p lasix Normocytic anemia. Mild. Appears to be long-standing. Stable. Plan: Monitor. Hypokalemia: replace prn Mod Oropharyngeal: ST eval, rec npo, temp TF's Patient high risk for further decompensation given his advanced dementia on top of hip fracture. We'll continue to follow expectantly. CODE STATUS: DO NOT RESUSCITATE DVT prophylaxis: Lovenox Medical - PN: Qual - VTE Deep Vein Thrombosis/Pulmonary Embolism Present on Admission: No
[2017-12-04] MEDS: ENOXAPARIN 40 MG/0.4 ML SYRINGE SQ SCH (07:39)
[2017-12-04] MEDS: FAMOTIDINE/PF 20 MG/2 ML VIAL IV SCH ×2 (07:39→21:39)
[2017-12-04] MEDS: ASPIRIN 325 MG ENTERIC COATED TABLET PO SCH ×2 (07:40→21:40)
[2017-12-04] MEDS: VIT A,C & E/LUTEIN/MINERALS TABLET PO SCH (07:40)
[2017-12-04] MEDS: DIVALPROEX 125 MG CAP.SPRINK PO SCH ×2 (07:40→21:39)
[2017-12-04] MEDS: DOCUSATE SODIUM 100 MG CAPSULE PO SCH ×2 (10:05→21:39)
--- NOTE | 2017-12-04 11:03 | XRay Report ---
CLINICAL INFORMATION: Esophagogastric tube placement TECHNIQUE: AP portable supine abdomen COMPARISON: None. FINDINGS: Metallic tip feeding tube in the proximal stomach. This should be advanced if possible. Bowel gas pattern is nonspecific. There is gas within small bowel and colon. IMPRESSION: Feeding tube tip in the proximal stomach Interpreted and Authenticated by: Darrion Colvin 12/04/17
[2017-12-04] MEDS ORDERED: ACETAMINOPHEN 160 MG/5 ML ORAL.SOL PO SCH (12:00)
[2017-12-04] MEDS ORDERED: ACETAMINOPHEN 325 MG TABLET PO SCH (12:00)
[2017-12-04] MEDS: LIDOCAINE PATCH TOPICAL SCH ×2 (12:24→23:00)
[2017-12-04] MEDS: ACETAMINOPHEN 160 MG/5 ML ORAL.SOL PT SCH ×3 (13:01→22:17)
[2017-12-04] MEDS ORDERED: diphenhydrAMINE 25 MG CAPSULE PO PRN (16:43)
[2017-12-04] MEDS: OLANZapine 5 MG TABLET PO SCH (21:39)
[2017-12-04] MEDS: SENNOSIDES 1 TABLET PO SCH (21:39)
[2017-12-04] MEDS: CHLORHEXIDINE GLUCONATE 1 ML ORAL.SOL SWABMOUTH SCH (21:40)
[2017-12-05] MEDS: ACETAMINOPHEN 160 MG/5 ML ORAL.SOL PT SCH ×3 (02:00→09:32)
[2017-12-05] MEDS: 0.9 % SODIUM CHLORIDE 10 ML SYRINGE IV SCH ×3 (05:52→18:50)
[2017-12-05] MEDS: PIPERACILLIN SODIUM/TAZOBACTAM 3.375 GM in DEXTROSE 5% IN WATER 50 ML IV SCH ×3 (05:52→17:48)
--- NOTE | 2017-12-05 06:06 | XRay Report ---
INDICATION: Hip fracture. Assess nasogastric tube position TECHNIQUE: AP chest x-ray, portable COMPARISON: Previous abdomen dated 12/04/2017. Previous chest x-rays dated 12/03/2017, 12/01/2017, 11/30/2017 FINDINGS: Metallic tip feeding tube is in unchanged position. The tip is in the proximal stomach. This should be advanced. Bilateral diffuse pulmonary parenchymal infiltrates are worse than on previous examination. Findings are nonspecific. Findings may be secondary to pulmonary edema. Pneumonia or ARDS are possible. Clinical correlation and continued follow-up radiographs recommended. IMPRESSION: 1. Metallic tip feeding tube with the tip in the proximal stomach. This should be advanced 2. Diffuse pulmonary parenchymal infiltrates are worse than on 12/03/2017 Interpreted and Authenticated by: Darrion Colvin 12/05/17
[2017-12-05 06:47] LABS: Blood Urea Nitrogen 34 mg/dl (8-23)
[2017-12-05] MEDS ORDERED: POTASSIUM CHLORIDE 20 MEQ TABLET PO ONE (06:53)
--- NOTE | 2017-12-05 06:55 | Internal Med Progress Note ---
Medical - PN: Subj Patient information: Note initiated : 12/05/17 at 6:50 am Service Date, if different from initiated Date: [] Patient: Vidal Guajardo a 87 y/o M admitted on 11/30/17 for Fall/Right Hip Fracture. Chief Complaint: [] Interval history: Mr. Guajardo is a 87 year old M a history of dementia, urinary frequency and retention, Cochran's esophagus, hypercholesterolemia which is not currently treated presents the ED after fall out of bed. History is obtained speaking to the patient's , some history obtained from the patient, as well as reviewing the available medical record. Patient is restless at night, he rolled out of bed this morning early, landed on his right side. His was unable to get him up. EMS was called, and he was transferred to the ED. Imaging reveals a right subcapital hip fracture. Currently the patient's complaining of some right hand pain, no hip pain while he is at rest. He denies any shortness of breath. His provides further review of systems, he normally does not have lower extremity edema, normally does not get dyspneic with exertion. He has no known history of coronary disease. She denies there is a history of atrial fibrillation, she was surprised to hear that that was noted in his chart (he is sinus rhythm currently ). 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 He does have a chronic cough which is nonproductive and has been ongoing for several years, and preceded his lobectomy. He generally ambulates without any symptoms. Patient is being admitted for surgical repair of his right subcapital hip fracture. 12/01 Had successful right hemiarthroplasty yesterday Became quite restless and agitated towards the evening, consistent with . Zyprexa 10 mg IM given, subsequently required lorazepam. Was more agitated this morning, required further lorazepam, now sleeping. 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 Developing hypoxia. Intermittently requiring oxy mask. 12/02 Continues to have intermittent agitation, trying to get out of bed. Has required lorazepam. Diuresis last evening secondary to falling oxygen saturations, worsening breath sounds, improved Urine analysis yesterday notable for urinary tract infection in the setting of urinary catheter, Zosyn started White count mildly improved today Cultures without growth so far 12/03 family at bedside, patient more awake and family able to understand some words. he seems to answer some of my questions, denies pain/headache/fever/chills/ nausea. 12/04 - at Bedside. He slept well last night. No overnight event. Has moments of clarity answers some questions it appears but otherwise difficult to obtain review of systems. Continues to be more awake than previous 12/05 Sleep last night pulled [place]. Replaced at bedside patient appears sleepy. Unable to gather review of systems - Constitutional Vitals: Vital Signs Temp Pulse Resp BP Pulse Ox 97.8 F 97 H 22 139/78 99 12/05/17 04:00 12/05/17 04:00 12/05/17 04:00 12/05/17 04:00 12/05/17 04:00 Period Temp Pulse Resp BP Sys/Canchola Pulse Ox Last 24 Hr 97.2 F-98.0 F 91-99 16-24 123-159/75-87 93-100 Intake and Output 12/04/17 12/05/17 12/05/17 21:59 05:59 13:59 Intake Total 80 / 80 145 / 145 145 / 145 Output Total 2 / 2 2 / 2 Balance 143 / 143 145 / 145 Weight 72.348 kg Intake & Output: Intake & Output 12/04/17 12/05/17 12/05/17 21:59 05:59 13:59 Intake Total 80 / 80 145 / 145 145 / 145 Output Total 2 / 2 2 / 2 Balance 78 143 / 143 145 / 145 Weight 72.348 kg Intake: IV 50 / 50 50 / 50 50 / 50 Zosyn 3.375 gm In Dextrose 5% 50 / 50 50 / 50 50 / 50 in Water 50 ml @ 100 mls/hr IV Q6H [facility] Rx#:[id number] GI Tube Flush 95 / 95 95 / 95 Output: # of times incontinent of urine 2 / 2 2 / 2 Other: Urine Color Bright Yellow Stool Size Small Stool Color Brown Stool Consistency Soft # of times incontinent of 1 Bowels Exam: General: drowsy, No acute Distress HEENT: EOMI, CV: RRR, No murmurs, Pulm: no wheezing, symmetrical expansion Abd: soft, nontender, +BS x4 Ext: no clubbing/cyanosis/edema Neuro: awake, moves all extremities, i am able to understand some of his verbalizations, others are incomprehensible Skin: warm/dry Medical - PN: Obj Da - Labs CBC & Chem 7: 12/04/17 04:20 12/05/17 04:40 Labs: Abnormal Lab Results 12/05/17 12/04/17 12/04/17 04:40 04:20 04:20 WBC RBC 3.94 L Hgb 10.9 L Hct 34.1 L RDW 14.6 H Gran % Lymph % (Auto) 13.9 L Gran # Lymph # (Auto) 1.2 L Potassium 3.2 L Carbon Dioxide 31 H BUN 34 H 29 H Creatinine 1.3 H 1.4 H Glucose 127 H Phosphorus AST Lactate Dehydrogenase NT-Pro-B Natriuret Pep Globulin Albumin/Globulin Ratio Triglycerides 12/03/17 12/03/17 04:39 04:39 WBC 12.1 H RBC 4.02 L Hgb 11.2 L Hct 34.3 L RDW Gran % 81.5 H Lymph % (Auto) 7.2 L Gran # 9.9 H Lymph # (Auto) 0.9 L Potassium 3.2 L Carbon Dioxide BUN Creatinine Glucose 107 H Phosphorus 2.4 L AST 44 H Lactate Dehydrogenase 290 H NT-Pro-B Natriuret Pep 786.9 H Globulin 3.9 H Albumin/Globulin Ratio 0.8 L Triglycerides 177 H Meds: Medications Acetaminophen (Tylenol) 650 mg PO Q6HP PRN PRN Reason: PAIN/FEVER > 101 Acetaminophen (Tylenol) 650 mg PT Q4H [facility] Stop: 12/05/17 12:00 Last Admin: 12/05/17 05:52 Dose: 650 mg Albuterol/Ipratropium (Duoneb) 3 ml NEB Q4HP PRN PRN Reason: Dyspnea Last Admin: 12/02/17 15:39 Dose: 3 ml Aspirin (Ecotrin) 325 mg PO BID [facility] Last Admin: 12/04/17 21:40 Dose: 325 mg Bisacodyl (Dulcolax) 10 mg UT Q2-3DAYS PRN PRN Reason: Constipation Chlorhexidine Gluconate (Peridex) 15 ml SWABMOUTH BID [facility] Last Admin: 12/04/17 21:40 Dose: 15 ml Diphenhydramine HCl (Benadryl) 25 mg PO HSP PRN PRN Reason: Insomnia Last Admin: 12/04/17 21:39 Dose: 25 mg Divalproex Sodium (Depakote Sprinkles) 125 mg PO BID [facility] Last Admin: 12/04/17 21:39 Dose: 125 mg Docusate Sodium (Colace) 300 mg PO BID [facility] Last Admin: 12/04/17 21:39 Dose: 300 mg Enoxaparin Sodium (Lovenox) 40 mg SQ DAILY [facility] Last Admin: 12/04/17 07:39 Dose: 40 mg Famotidine (Pepcid) 20 mg IV Q12 [facility] Last Admin: 12/04/17 21:39 Dose: 20 mg Piperacillin Sod/Tazobactam (Sod 3.375 gm/ Dextrose) 50 mls @ 100 mls/hr IV Q6H [facility] Last Infusion: 12/05/17 06:36 Dose: Infused Lidocaine (Lidoderm) 1 patch TOPICAL DAILY@1000 [facility] Last Admin: 12/04/17 12:24 Dose: 1 patch Lidocaine (Lidoderm) 0 patch TOPICAL DAILY@2200 [facility] Last Admin: 12/04/17 23:00 Dose: Not Given Magnesium Hydroxide (Milk Of Magnesia) 30 ml PO DAILYP PRN PRN Reason: Constipation Morphine Sulfate (Morphine) 2 mg IV Q1HP PRN PRN Reason: Pain Last Admin: 12/03/17 06:59 Dose: 2 mg Multivitamins/Minerals (Ocuvite) 1 tab PO DAILY [facility] Last Admin: 12/04/17 07:40 Dose: 1 tab Olanzapine (Zyprexa) 5 mg PO HS [facility] Last Admin: 12/04/17 21:39 Dose: 5 mg Ondansetron HCl (Zofran) 4 mg IV Q6HP PRN PRN Reason: Nausea And Vomiting Melatonin 10 Mg 1 dose PO HS [facility] Last Admin: 12/04/17 21:40 Dose: 1 dose Senna (Senokot) 2 tab PO HS [facility] Last Admin: 12/04/17 21:39 Dose: 2 tab Sodium Chloride (Saline Flush) 10 ml IV Q8 [facility] Last Admin: 12/05/17 05:52 Dose: 10 ml Medical - PN: A/P - Time Spent With Patient Total time spent is greater than 50% in coordination of care (as documented) at patient's floor/unit and/or counseling patient: - Narrative A/P Narrative: *Right hip fracture: s/p status post right hemiarthroplasty (11/30) -Plan: Per ortho. Physical therapy as possible. Continue Lovenox for DVT prophylaxis (changed from twice a day aspirin as we cannot reliably get him to take oral meds). *Alzheimer's dementia with post-op delerium improved: Has failed Aricept and Namenda in the past. -Improving slowly -Plan: Depakote sprinkles, qhs Zyprexa, we'll try to reorient, use nonpharmacologic treatments for delirium. *Urinary tract infection associated with urinary catheter. leukocytosis resolved. No evidence of pneumonia, but did have volume overload on chest x-ray -Plan: continue abx *Volume overload with pulmonary edema: bnp 787, improved -2L NC/oxymask, unable to keep accurate i/o's w/pt incontinence & concern w/ Parker being placed with patient grabbing at lines -Plan: fluids stopped, echo pending, s/p lasix *CKD III: *Normocytic anemia. Mild. Appears to be long-standing. Stable. -Plan: Monitor. *Hypokalemia: replace prn *Mod Oropharyngeal: ST eval, rec npo, temp TF's in place. CXR findings possibly from aspiration. PEG placement. Patient high risk for further decompensation given his advanced dementia on top of hip fracture. W CODE STATUS: DO NOT RESUSCITATE DVT prophylaxis: Lovenox Medical - PN: Qual - VTE Deep Vein Thrombosis/Pulmonary Embolism Present on Admission: No
[2017-12-05] MEDS: FAMOTIDINE/PF 20 MG/2 ML VIAL IV SCH ×2 (09:31→22:14)
[2017-12-05] MEDS: ASPIRIN 325 MG ENTERIC COATED TABLET PO SCH ×2 (09:31→22:05)
[2017-12-05] MEDS: ENOXAPARIN 40 MG/0.4 ML SYRINGE SQ SCH (09:31)
[2017-12-05] MEDS: DIVALPROEX 125 MG CAP.SPRINK PO SCH ×2 (09:31→22:05)
[2017-12-05] MEDS: DOCUSATE SODIUM 100 MG CAPSULE PO SCH ×2 (09:31→22:05)
[2017-12-05] MEDS: VIT A,C & E/LUTEIN/MINERALS TABLET PO SCH (09:32)
[2017-12-05] MEDS: CHLORHEXIDINE GLUCONATE 1 ML ORAL.SOL SWABMOUTH SCH ×2 (09:32→22:14)
[2017-12-05] MEDS: LIDOCAINE PATCH TOPICAL SCH ×2 (09:32→22:07)
[2017-12-05] MEDS ORDERED: PROPOFOL 20 ML IV ONE (16:14)
[2017-12-05] MEDS: MIDAZOLAM 2 MG/2 ML VIAL ONE ×2 (16:38→17:46)
[2017-12-05] MEDS ORDERED: PROPOFOL 200 MG/20 ML VIAL IV SCH (17:00)
[2017-12-05] MEDS ORDERED: MIDAZOLAM 2 MG/2 ML VIAL IV SCH (17:00)
[2017-12-05] MEDS: DEXTROSE 5%-1/2NS W/20MEQ KCL 1,000 ML IV SCH (18:52)
[2017-12-05] MEDS: OLANZapine 5 MG TABLET PO SCH (22:06)
[2017-12-05] MEDS: SENNOSIDES 1 TABLET PO SCH (22:07)
[2017-12-06] MEDS: PIPERACILLIN SODIUM/TAZOBACTAM 3.375 GM in DEXTROSE 5% IN WATER 50 ML IV SCH ×2 (00:14→05:52)
[2017-12-06] MEDS: 0.9 % SODIUM CHLORIDE 10 ML SYRINGE IV SCH (05:52)
--- NOTE | 2017-12-06 06:59 | Internal Med Progress Note ---
Medical - PN: Subj Patient information: Note initiated : 12/06/17 at 6:56 am Service Date, if different from initiated Date: [] Patient: Vidal Guajardo a 87 y/o M admitted on 11/30/17 for Fall/Right Hip Fracture. Chief Complaint: [] Interval history: Mr. Guajardo is a 87 year old M a history of dementia, urinary frequency and retention, Cochran's esophagus, hypercholesterolemia which is not currently treated presents the ED after fall out of bed. History is obtained speaking to the patient's , some history obtained from the patient, as well as reviewing the available medical record. Patient is restless at night, he rolled out of bed this morning early, landed on his right side. His was unable to get him up. EMS was called, and he was transferred to the ED. Imaging reveals a right subcapital hip fracture. Currently the patient's complaining of some right hand pain, no hip pain while he is at rest. He denies any shortness of breath. His provides further review of systems, he normally does not have lower extremity edema, normally does not get dyspneic with exertion. He has no known history of coronary disease. She denies there is a history of atrial fibrillation, she was surprised to hear that that was noted in his chart (he is sinus rhythm currently ). 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 He does have a chronic cough which is nonproductive and has been ongoing for several years, and preceded his lobectomy. He generally ambulates without any symptoms. Patient is being admitted for surgical repair of his right subcapital hip fracture. 12/01 Had successful right hemiarthroplasty yesterday Became quite restless and agitated towards the evening, consistent with . Zyprexa 10 mg IM given, subsequently required lorazepam. Was more agitated this morning, required further lorazepam, now sleeping. 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 Developing hypoxia. Intermittently requiring oxy mask. 12/02 Continues to have intermittent agitation, trying to get out of bed. Has required lorazepam. Diuresis last evening secondary to falling oxygen saturations, worsening breath sounds, improved Urine analysis yesterday notable for urinary tract infection in the setting of urinary catheter, Zosyn started White count mildly improved today Cultures without growth so far 12/03 family at bedside, patient more awake and family able to understand some words. he seems to answer some of my questions, denies pain/headache/fever/chills/ nausea. 12/04 - at Bedside. He slept well last night. No overnight event. Has moments of clarity answers some questions it appears but otherwise difficult to obtain review of systems. Continues to be more awake than previous 12/05 Sleep last night pulled Dobbhoff. Replaced at bedside patient appears sleepy. Unable to gather review of systems 12/06 PEG placed yesterday. at bedside. patient awake. - Constitutional Vitals: Vital Signs Temp Pulse Resp BP Pulse Ox 97.5 F 68 20 138/74 97 12/06/17 04:00 12/06/17 04:00 12/06/17 04:00 12/06/17 04:00 12/06/17 04:00 Period Temp Pulse Resp BP Sys/Canchola Pulse Ox Last 24 Hr 96.7 F-98 F 65-85 15-24 116-151/64-98 93-100 Intake and Output 12/05/17 12/06/17 12/06/17 21:59 05:59 13:59 Intake Total 50 / 50 50 / 50 Output Total 1 / 2 / 2 Balance 49 / 49 48 / 48 Weight 70.307 kg Intake & Output: Intake & Output 12/05/17 12/06/17 12/06/17 21:59 05:59 13:59 Intake Total 50 / 50 50 / 50 Output Total 1 / 2 / 2 Balance 49 / 49 48 / 48 Weight 70.307 kg Intake: IV 50 / 50 50 / 50 Zosyn 3.375 gm In Dextrose 5% 50 / 50 50 / 50 in Water 50 ml @ 100 mls/hr IV Q6H [facility] Rx#:[id number] Output: # of times incontinent of urine 1 / 1 2 / 2 Other: Stool Size Moderate Large Stool Color Brown Brown Yellow Stool Consistency Loose Loose # of times incontinent of 1 1 Bowels Exam: General: drowsy, No acute Distress HEENT: EOMI, CV: RRR, No murmurs, Pulm: no wheezing, symmetrical expansion, mild b/l rhonchi Abd: soft, nontender, +BS x4 Ext: no clubbing/cyanosis/edema Neuro: awake, moves all extremities, verbalizations incomprehensible Skin: warm/dry Medical - PN: Obj Da - Labs CBC & Chem 7: 12/04/17 04:20 12/05/17 04:40 Labs: Abnormal Lab Results 12/05/17 12/04/17 12/04/17 04:40 04:20 04:20 RBC 3.94 L Hgb 10.9 L Hct 34.1 L RDW 14.6 H Lymph % (Auto) 13.9 L Lymph # (Auto) 1.2 L Potassium 3.2 L Carbon Dioxide 31 H BUN 34 H 29 H Creatinine 1.3 H 1.4 H Glucose 127 H Meds: Medications Acetaminophen (Tylenol) 650 mg PO Q6HP PRN PRN Reason: PAIN/FEVER > 101 Albuterol/Ipratropium (Duoneb) 3 ml NEB Q4HP PRN PRN Reason: Dyspnea Last Admin: 12/02/17 15:39 Dose: 3 ml Aspirin (Ecotrin) 325 mg PO BID [facility] Last Admin: 12/05/17 22:05 Dose: Not Given Bisacodyl (Dulcolax) 10 mg OH Q2-3DAYS PRN PRN Reason: Constipation Chlorhexidine Gluconate (Peridex) 15 ml SWABMOUTH BID [facility] Last Admin: 12/05/17 22:14 Dose: 15 ml Diphenhydramine HCl (Benadryl) 25 mg PO HSP PRN PRN Reason: Insomnia Last Admin: 12/04/17 21:39 Dose: 25 mg Divalproex Sodium (Depakote Sprinkles) 125 mg PO BID [facility] Last Admin: 12/05/17 22:05 Dose: Not Given Docusate Sodium (Colace) 300 mg PO BID [facility] Last Admin: 12/05/17 22:05 Dose: Not Given Enoxaparin Sodium (Lovenox) 40 mg SQ DAILY [facility] Last Admin: 12/05/17 09:31 Dose: 40 mg Famotidine (Pepcid) 20 mg IV Q12 [facility] Last Admin: 12/05/17 22:14 Dose: 20 mg Piperacillin Sod/Tazobactam (Sod 3.375 gm/ Dextrose) 50 mls @ 100 mls/hr IV Q6H [facility] Last Admin: 12/06/17 05:52 Dose: 100 mls/hr Potassium Chloride/Dextrose/Sod Cl (Dextrose 5%-1/2ns W/20meq Kcl) 1,000 mls @ 60 mls/hr IV .[id number] [facility] Last Admin: 12/05/17 18:52 Dose: 60 mls/hr Lidocaine (Lidoderm) 1 patch TOPICAL DAILY@1000 [facility] Last Admin: 12/05/17 09:32 Dose: 1 patch Lidocaine (Lidoderm) 0 patch TOPICAL DAILY@2200 [facility] Last Admin: 12/05/17 22:07 Dose: Not Given Magnesium Hydroxide (Milk Of Magnesia) 30 ml PO DAILYP PRN PRN Reason: Constipation Morphine Sulfate (Morphine) 2 mg IV Q1HP PRN PRN Reason: Pain Last Admin: 12/03/17 06:59 Dose: 2 mg Multivitamins/Minerals (Ocuvite) 1 tab PO DAILY [facility] Last Admin: 12/05/17 09:32 Dose: 1 tab Olanzapine (Zyprexa) 5 mg PO HS [facility] Last Admin: 12/05/17 22:06 Dose: Not Given Ondansetron HCl (Zofran) 4 mg IV Q6HP PRN PRN Reason: Nausea And Vomiting Melatonin 10 Mg 1 dose PO HS [facility] Last Admin: 12/05/17 22:05 Dose: Not Given Senna (Senokot) 2 tab PO [facility] Last Admin: 12/05/17 22:07 Dose: Not Given Sodium Chloride (Saline Flush) 10 ml IV Q8 [facility] Last Admin: 12/06/17 05:52 Dose: Not Given Medical - PN: A/P - Time Spent With Patient Total time spent is greater than 50% in coordination of care (as documented) at patient's floor/unit and/or counseling patient: - Narrative A/P Narrative: *Right hip fracture: s/p status post right hemiarthroplasty (11/30) -Plan: Per ortho. Physical therapy as possible. Continue Lovenox for DVT prophylaxis (changed from twice a day aspirin as we cannot reliably get him to take oral meds). *Alzheimer's dementia with post-op delerium improved: Has failed Aricept and Namenda in the past. -Improving slowly -Plan: Depmaco lara, qhs Zyprexa, we'll try to reorient, use nonpharmacologic treatments for delirium. *Urinary tract infection associated with urinary catheter. leukocytosis resolved. No evidence of pneumonia, but did have volume overload on chest x-ray -Plan: continue abx *Aspiration pneumonitis: *Volume overload with pulmonary edema: bnp 787, resolved *CKD III: *Normocytic anemia. Mild. Appears to be long-standing. Stable. -Plan: Monitor. *Hypokalemia: replace prn *Mod Oropharyngeal: ST eval, rec npo, temp TF's in place. CXR findings possibly from aspiration. PEG placemed 12/05 Patient high risk for further decompensation given his advanced dementia on top of hip fracture. W CODE STATUS: DO NOT RESUSCITATE DVT prophylaxis: Lovenox Medical - PN: Qual - VTE Deep Vein Thrombosis/Pulmonary Embolism Present on Admission: No
--- NOTE | 2017-12-06 07:19 | Operative Note ---
DATE OF OPERATION: 12/05/2017 PREPROCEDURE DIAGNOSES: 1. Oropharyngeal dysphagia-aspiration risk. 2. Alzheimer's disease. 3. Status post hip fracture. POSTPROCEDURE DIAGNOSES: 1. Oropharyngeal dysphagia-aspiration risk. 2. Minimal gastritis. 3. Minimal EGitis. 4. Alzheimer's. 5. Status post hip fracture. PROCEDURE: Esophagogastroduodenoscopy with percutaneous endoscopic gastrostomy tube placement. INSTRUMENT USED: Olympus GABRIELLA [id number] endoscope. SPECIMENS OBTAINED: None. INDICATIONS FOR PROCEDURE: The patient is an 87-year-old gentleman whose primary care provider is Smitha Yadav NP. The patient was seen by Dr. Hammond for his hip fracture. I was asked by one of the hospitalist, Dr. Nguyen to consider a PEG tube as the patient had significant oropharyngeal dysphagia and I believe is at significant aspiration risk. The patient's INR was 1.1. He is on Zosyn q.6 hours. Therefore, no additional antibiotics were used. He does have Alzheimer's disease. He does not seem to communicate well. Feeding tube is requested for better enteral nutrition for the longer duration time. INFORMED CONSENT: Brief explanation of the procedure was accomplished. However, I am uncertain if he understood any of this. IV MEDICATIONS USED: Versed 1, propofol 100. ADDITIONAL COMMENTS: Consent was granted by the person having power of environmental attorney. Please see hospital consent form. FINDINGS: ESOPHAGUS: Proximal, mid and distal esophagus normal. EG JUNCTION: This was around 35 cm. There was questionable to minimal erythema noted. STOMACH: Cardia, fundus and body normal. Antrum: There was questionable prepyloric erythema noted. PYLORUS: Normal. DUODENUM: This appeared normal. The abdomen had been scrubbed with a cleansing agent. Using sterile technique, the anterior abdominal wall was indented with a finger. This was marked. Local anesthesia was accomplished with lidocaine. Needle catheter was stabbed into the gastric cavity. Suture wire was placed through this. The suture wire was pulled out through the mouth. This feeding tube was attached. This was pulled out through the anterior abdominal wall. Skin level was at 4 cm. The area was secured and dressed. Abdominal binder was ordered. PEG tube kit-Endo Vive 20 M[place]ese pull PEG from [employer]. RECOMMENDATIONS: The abdominal binder will be ordered. PPI medications are probably optional given the pathology seen. I believe the PEG tube could be tested in the morning with 100-150 mL of water. If this tolerated the PEG tube may be used for medication and feeding as ordered. I would like the feeding tube flushed with 20 to 50 mL of water 3 times a day and after medications and after bolus feedings. Site should be kept clean and dry. Sedation time: 16:28-17:15. Please refer to the preprocedure nurse's notes, procedure flowsheet, procedure record, and post-procedure assessment for details of the sedation including the pre-, intra-, and post-service work. CRD:kh Job ID: [id number] Doc ID: [id number] Christian Angela
[2017-12-06] MEDS ORDERED: ASPIRIN 81 MG TAB.CHEW PO SCH (09:00)
[2017-12-06] MEDS ORDERED: DOCUSATE SODIUM 20 MG/5 ML ORAL.SOL PO SCH (09:00)
[2017-12-06] MEDS: VIT A,C & E/LUTEIN/MINERALS TABLET PO SCH (09:20)
[2017-12-06] MEDS: DIVALPROEX 125 MG CAP.SPRINK PO SCH (09:20)
[2017-12-06] MEDS: ENOXAPARIN 40 MG/0.4 ML SYRINGE SQ SCH (09:21)
[2017-12-06] MEDS: FAMOTIDINE/PF 20 MG/2 ML VIAL IV SCH (09:21)
[2017-12-06] MEDS: CHLORHEXIDINE GLUCONATE 1 ML ORAL.SOL SWABMOUTH SCH (09:21)
[2017-12-06] MEDS: LIDOCAINE PATCH TOPICAL SCH (09:21)
[2017-12-06] MEDS: DEXTROSE 5%-1/2NS W/20MEQ KCL 1,000 ML IV SCH (11:47)
== END 2017-12-06 11:45 | DRG 469 ==
LOC: ED 03:42 → SUR 09:07 → MEDSUR 12:08
PROVIDERS: ADMIT Internal Medicine; ATTEND Internal Medicine
PROC: HEMIHIP (2017-11-30 09:35)